=== PATIENT | female | born 1975 | race Hispanic/Latino ===

== ENCOUNTER 2018-09-16 11:42 | Inpatient (IN) | payer MEDICAID, SELFPAY ==
[2018-09-16 12:29] LABS: #Basophils 0.1 thou/uL (0.0-0.2); #Eosinphils 0.2 thou/uL (0.0-0.7); #Lymphocytes 2.8 thou/uL (1.20-3.40); #Monocytes 0.6 thou/uL (0.11-0.59); #Neutrophils 8.8 thou/uL (1.40-6.50); %Basophils 0.5 % (0.0-1.0); %Eosinophils 1.3 % (0.0-10.0); %Lymphocytes 22.6 % (21.0-51.0); %Monocytes 4.8 % (0.0-10.0); %Neutrophils 70.9 % (42.0-75.0); Hemoglobin 13.6 g/dL (12.0-16.0); Mean Corpuscular HGB CONC 32.2 g/dL (32.0-36.0); Mean Corpuscular Hemoglobin 25.1 pg (27.0-31.0); Mean Platelet Volume 9.6 fL (7.4-10.4); Platelet Count 360 thou/uL (130-400); RBC Distribution Width 15.2 % (11.5-14.5); Red Blood Cell (RBC) Count 5.41 mill/uL (4.20-5.40); White Blood Cell (WBC) Count 12.3 thou/uL (4.8-10.8)
--- NOTE | 2018-09-16 12:40 | RAD ---
AP CHEST: History: Chest pain. Date: 09-16-18 FINDINGS: AP chest demonstrates the lungs to be well aerated. No evidence of active intrathoracic disease seen. No evidence of effusions, pneumonia, or pneumothorax is seen. IMPRESSION: Unremarkable AP chest. POS: [facility]
[2018-09-16 12:50] LABS: ALT (SGPT) 16 U/L (8-55); AST (SGOT) 17 U/L (5-34); Albumin 3.7 g/dL (3.5-5.0); Alkaline Phosphatase 97 U/L (40-150); Anion Gap 13 mmol/L (10-20); BUN (Urea Nitrogen) 11 mg/dL (7.0-18.7); Bilirubin, Total 0.7 mg/dL (0.2-1.2); Calc. Creatinine Clearance 0 mL/min (70-130); Calcium 8.9 mg/dL (7.8-10.44); Carbon Dioxide 18 mmol/L (22-29); Chloride 108 mmol/L (98-107); Estimated GFR-MDRD Greater than 90; Globulin 3.9 g/dL (2.4-3.5); Glucose 370 mg/dL (70-105); Potassium 4.2 mmol/L (3.5-5.1); Protein, Total 7.6 g/dL (6.0-8.3); Sodium 135 mmol/L (136-145)
[2018-09-16] MEDS ORDERED: Fentanyl 100 MCG/2 ML VIAL ONE (12:54)
[2018-09-16 13:12] LABS: CKMB 3.3 ng/mL (0-6.6)
[2018-09-16] MEDS ORDERED: Aspirin Chewable 81 MG TAB ONE (14:00)
[2018-09-16 15:58] LABS: Troponin I 0.721 ng/mL (< 0.028)
[2018-09-16] MEDS ORDERED: Ondansetron PF 4 MG/2 ML Vial IVP PRN (17:15)
[2018-09-16] MEDS ORDERED: Ondansetron ODT 4 MG TAB PO PRN (17:15)
[2018-09-16] MEDS ORDERED: Nitroglycerin 0.4 MG TAB (25 Tab Bottle) PO PRN (17:15)
[2018-09-16] MEDS ORDERED: Acetaminophen 325 MG TAB PO PRN (17:15)
[2018-09-16] MEDS ORDERED: Dextrose 50% Abboject 50 ML SYRINGE SLOW IVP PRN (17:19)
[2018-09-16] MEDS ORDERED: HumaLOG 300 UNITS/3 ML VIAL SC PRN (17:19)
[2018-09-16] MEDS ORDERED: Dextrose 5% in Water 1,000 ML IV PRN (17:19)
[2018-09-16] MEDS ORDERED: Sodium Chloride 0.9% (PF) 10 ML VIAL FS PRN (17:48)
[2018-09-16 18:49] LABS: Troponin I 2.063 ng/mL (< 0.028)
[2018-09-16] MEDS ORDERED: Communication Order-Pharmacy FS SCH (20:45)
[2018-09-16] MEDS ORDERED: Atorvastatin Calcium 40 MG TAB PO SCH ×2 (21:00→23:15)
[2018-09-16] MEDS ORDERED: Midazolam HCl 2 mg/2 ml Vial ONE (21:07)
[2018-09-16] MEDS ORDERED: Nitroglycerin 4.9 GM Bottle ONE (21:09)
[2018-09-16] MEDS ORDERED: hydrALAZINE 20 MG/ML VIAL ONE (21:50)
--- NOTE | 2018-09-16 22:53 | HP ---
PRIMARY CARE PHYSICIAN: Dr. Tracy. CHIEF COMPLAINT: Chest pain. HISTORY OF PRESENT ILLNESS: Ms. Floyd Fritz is a pleasant 42-year-old Portuguese-speaking female with past medical history of hypertension; diabetes mellitus type 2; leukemia; coronary artery disease, status post stent placement; hyperlipidemia, who had presented to [facility] with chest pain and hypotension that has been ongoing over the last 2 to 3 weeks. She states that the chest pain is on the left side of her chest that is nonreproducible. However, she also reports that the chest pain is worse if she is up walking, states it is even giving her some [id number] shortness of breath, where she had to stop and sit down and catch her breath during times when she was at home. She has also complained of some abdominal pain, which is in her left upper quadrant. She had denied any history of GERD-like symptoms in the past; however, she does state that the symptoms are worse after meals. She is accompanied by her . She reports having a followup with a operation agent in the next 2 to 3 weeks; however, she has not seen them as of yet. She had denied any fever, chills, any headache, blurred vision, or dizziness. Denies any shortness of breath at the moment. Denies any nausea, vomiting, or change in stool. Denies any intent weight loss or weight gain over the last 6 months. During her initial workup, blood pressure was found to be low at 60/49. She was given IV fluid with normal saline x1 L, which seemed to improve to 138/75. Chest x-ray was found to be unremarkable. She was given aspirin 325 mg and fentanyl 50 mcg IV push in the ER, which seemed to help her chest pain; however, it has returned to 7/10 pain. Serial troponins were ordered. First one was indeterminate at 0.046 and the second was slightly elevated at 0.721. Third is pending at this time. White count slightly elevated at 12.3; however, no other signs of infectious-like process at this time. Cardiology Services was then consulted due to her elevated troponin and she will be admitted under observation for further workup of her chest pain. REVIEW OF SYSTEMS: All other systems reviewed and found to be negative unless mentioned in the HPI. PAST MEDICAL HISTORY: Significant for leukemia, hypertension, hyperlipidemia, diabetes mellitus type 2, coronary artery disease. PAST SURGICAL HISTORY: section about 18 years ago and status post angioplasty with stent placement x1. SOCIAL HISTORY: The patient denies any alcohol, tobacco, or illicit drug use. KNOWN ALLERGIES: None. HOME MEDICATIONS: 1. Metformin 1000 mg b.i.d. 2. Glipizide 10 mg oral daily. 3. Tasigna 150 mg two tablets oral twice daily. PHYSICAL EXAMINATION: VITAL SIGNS: Blood pressure 138/75, pulse 90, respirations 17, temperature 98.9 degrees Fahrenheit, O2 saturations 99% on room air. GENERAL: The patient is awake, alert, and oriented x3. No acute distress noted. Non-Yi speaking. HEENT: Atraumatic, normocephalic. Pupils are round and reactive to light. Extraocular muscles intact. Moist mucous membranes noted. Oropharynx is clear without exudates or erythema. NECK: Soft and supple. No JVD. Trachea midline. CARDIOVASCULAR: Positive S1 and S2. Regular rate and rhythm. No murmur auscultated. ABDOMEN: Soft. Mild tenderness in the left upper quadrant. No rebound. No rigidity. Bowel sounds present. RESPIRATORY: Clear to auscultation bilaterally. No wheezes, rales, or rhonchi. MUSCULOSKELETAL: Strength 5+ bilaterally in upper and lower extremities. Moves all extremities equal. No edema noted. NEUROLOGIC: Cranial nerves 2 through 12 grossly intact. No focal deficits noted. Speech intact and normal. Gait not assessed. SKIN: Warm, dry, and intact. No ulcerations. No lesions noted. PSYCHIATRIC: Good mood and affect. LABORATORY DATA: WBC 12.3, RBC 5.41, hemoglobin 13.6, platelet 360. Sodium 135, potassium 4.2, anion gap 13, BUN 11, creatinine 0.68, estimated GFR greater than 90, glucose 370, AST 17, ALT 16, alkaline phosphatase 97. Troponin 0.046, 0.721; CK-MB 3.3. DIAGNOSTIC IMAGING: Chest x-ray was unremarkable. ASSESSMENT AND PLAN: 1. Chest pain. Cardiology Services will be consulted. Continue with aspirin therapy at this time. Continue to monitor vital signs and add antihypertensives as she is able to tolerate; however, due to her initial hypotension, we will hold off at this time. Serial troponins found to be trending up, with the first 0.046 and second 0.721. We will await the third and await further recommendations from Cardiology. 2. History of hypertension. The patient was hypotensive on arrival to the ER. We will monitor vital signs closely overnight and we will add antihypertensives as needed. 3. Diabetes mellitus type 2. Continue on the patient's home regimen at this time. Continue with frequent Accu-Cheks and place on insulin sliding scale as needed. 4. Leukocytosis. White count noted to be 12.3. No further signs of an infectious-like process at this time. Therefore, we will recheck CBC in the morning and hold off on antibiotics at this time. 5. Left upper quadrant pain. This could likely be secondary to gastroesophageal reflux disease, undiagnosed at this time. Therefore, we will place the patient on PPI and continue to monitor. 6. Deep venous thrombosis and gastrointestinal prophylaxis. 7. Code status. Full code. DISPOSITION: Pending further workup and clinical findings. Job ID: [id number]
[2018-09-16] MEDS ORDERED: traMADol HCl 50 MG TAB PO PRN (22:54)
[2018-09-16] MEDS ORDERED: Nitroglycerin 0.4 MG TAB (25 Tab Bottle) SL PRN (22:54)
[2018-09-16] MEDS ORDERED: Acetaminophen/Codeine 30-300mg Tablet PO PRN ×2 (22:54)
[2018-09-16] MEDS ORDERED: Sodium Chloride 0.9% 1,000 ML IV SCH (22:54)
[2018-09-17] MEDS ORDERED: Heparin 10,000 UNITS/ 10 ML VIAL SLOW IVP SCH (00:15)
[2018-09-17] MEDS ORDERED: Heparin 25,000 units/D5W 500 ML IV SCH (00:15)
--- NOTE | 2018-09-17 00:19 | CON ---
DATE OF CONSULTATION: 09/16/2018 INDICATION FOR CONSULTATION: A 42-year-old female with chest pain. The history was obtained through an employee relation manager. This is a 42-year-old female who was seen in the emergency room. She had been complaining of chest pain on and off since August 26 or . She really thought it was due to chemotherapy that she has been taking for her leukemia, uncertain as what kind of leukemia she has, but she was taking chemotherapy, takes 2 tablets a day apparently. The pain has been present on and off and pretty much now constant since August 26 or . She is unsure exactly when it started, but today she had more pain, and she had 1 episode of vomiting. EKGs did show evidence of some ST-segment changes with some T-wave abnormalities in the inferior as well as lateral leads. She complains of chest pain still of 7/10. Cardiac enzymes on admission to the emergency room were 0.046, has increased up to 0.72, and is now 2.063, and she still continued to have some chest discomfort and EKG changes. I have discussed with her the possibility of proceeding with cardiac catheterization. PAST MEDICAL HISTORY: Significant for diabetes, leukemia, and . She denies any history of hypertension, hypercholesterolemia, or tobacco abuse, or strong family history of heart disease. However, she does have some xanthelasma on the upper eyelids, most likely associated with possible hypercholesterolemia. SOCIAL HISTORY: She has a partner. She is not at this time. Apparently, she has 1 child. She has no alcohol or tobacco abuse. She does not work. FAMILY HISTORY: Noncontributory. MEDICATIONS: She says she takes medicines for her chemotherapy for leukemia and also takes some medicines for diabetes. She says her doctor is Dr. Craig, who is the oncologist. ALLERGIES: NONE. REVIEW OF SYSTEMS: Her 12-point review of systems is negative except for what I am about to explain and that is she does have some visual changes which she attributes has been told is due to her diabetes. She had 1 episode of vomiting today. She does complain of bone pain also, which most likely is associated with her leukemia and she has been told that this is a likely cause. Otherwise, her 12-point review of systems is unremarkable except for what was noted in the history of present illness. PHYSICAL EXAMINATION: GENERAL: Reveals a middle-aged female. She does not appear to be in acute distress, but she does appear to be uncomfortable. VITAL SIGNS: Her heart rate is about 90 beats per minute, blood pressure was 136/65, O2 saturation is 99%. HEENT: Shows the head to be normocephalic and atraumatic. Carotid pulses are present. There were no bruits noted. CHEST: Her chest is actually clear to auscultation. Did not hear any rales, rhonchi, or wheezing. CARDIOVASCULAR: Reveals a regular rate and rhythm. There were no gross murmurs noted. ABDOMEN: Shows morbid obesity. I cannot palpate any masses or tenderness. EXTREMITIES: Showed no significant clubbing, cyanosis, or edema. Could not palpate radial pulses, pedal pulses and femoral pulses are present, somewhat hard to palpate, but are present. NEUROLOGIC: The patient appears to be fully intact. SKIN: Warm and dry. She did have significant varicose veins in the lower extremities. LABORATORY DATA: EKG as noted above for the sinus rhythm with ST-segment depression in I and aVL with T-wave inversions in V3 through V6. Repeat EKG shows improvement in some of these with ST-segment depression in I and aVL, now resolved with the T waves slightly less significant than previously. However, she still continues to have chest discomfort. IMPRESSION: 1. Non ST-segment elevation myocardial infarction. Since she continues to have chest discomfort and enzymes continue to increase, which she will be advised to undergo cardiac catheterization. I have explained the procedure, the risks to her to include bleeding, infection, possible myocardial infarction, CVA, renal insufficiency, allergic contrast reaction, and even the possibility of . 2. History of diabetes. This will be dealt with by the primary care service. Her blood sugar is 370. 3. History of some form of leukemia, for which she sees her oncologist. Further recommendations will depend on the results of the cardiac catheterization after this has been completed. Job ID: [id number]
[2018-09-17] MEDS ORDERED: Sodium Chloride 0.9% 1,000 ML IV SCH (00:30)
[2018-09-17] MEDS ORDERED: Sodium Chloride 0.45% 1,000 ML IV SCH (00:30)
[2018-09-17] MEDS: Pantoprazole 40 MG VIAL IVP SCH ×3 (00:41→20:15)
[2018-09-17] MEDS: Nitroglycerin 2% Ointment 1 INCH/1 GM Packet TOP SCH ×4 (00:49→16:32)
[2018-09-17 04:20] LABS: #Basophils 0.1 thou/uL (0.0-0.2); #Eosinphils 0.1 thou/uL (0.0-0.7); #Lymphocytes 3.9 thou/uL (1.20-3.40); #Monocytes 0.7 thou/uL (0.11-0.59); %Basophils 0.9 % (0.0-1.0); %Eosinophils 1.1 % (0.0-10.0); %Lymphocytes 33.1 % (21.0-51.0); %Monocytes 5.8 % (0.0-10.0); %Neutrophils 59.1 % (42.0-75.0); Hemoglobin 11.4 g/dL (12.0-16.0); Mean Corpuscular HGB CONC 31.5 g/dL (32.0-36.0); Mean Corpuscular Hemoglobin 25.8 pg (27.0-31.0); Mean Corpuscular Volume 81.9 fL (78.0-98.0); Mean Platelet Volume 9.4 fL (7.4-10.4); Platelet Count 294 thou/uL (130-400); RBC Distribution Width 15.4 % (11.5-14.5); Red Blood Cell (RBC) Count 4.43 mill/uL (4.20-5.40); White Blood Cell (WBC) Count 11.8 thou/uL (4.8-10.8)
[2018-09-17 04:42] LABS: Anion Gap 13 mmol/L (10-20); BUN (Urea Nitrogen) 8 mg/dL (7.0-18.7); Calc. Creatinine Clearance 264 mL/min (70-130); Calcium 7.5 mg/dL (7.8-10.44); Carbon Dioxide 15 mmol/L (22-29); Cardiac Risk 5.8 (Less than 4.5); Chloride 112 mmol/L (98-107); Cholesterol 260 mg/dl (< 200 Desired); Estimated GFR-MDRD Greater than 90; Glucose 224 mg/dL (70-105); HDL Cholesterol 45 mg/dL (>60 Neg Risk); LDL Cholesterol, Calculated 180 mg/dL; Potassium 3.6 mmol/L (3.5-5.1); Sodium 136 mmol/L (136-145); Triglycerides 177 mg/dL (Less than 150)
[2018-09-17] MEDS: HumaLOG 300 UNITS/3 ML VIAL SC PRN ×3 (06:39→21:22)
[2018-09-17] MEDS ORDERED: Sodium Chloride 0.9% 500 ML IV SCH (07:15)
[2018-09-17] MEDS ORDERED: DOPamine 400 MG/D5W 250 ML 250 ML IVPB SCH (07:45)
--- NOTE | 2018-09-17 08:47 | PDOC.CTH ---
Cardiology Progress Note - Subjective The pt seen and examined. No overnight events. No cardiac complaints. She complains of nausea, mild dizziness, and CP with 4/10 on pain scale. - Objective Vital Signs Temp Pulse Ox 09/17/18 08:00 97.9 F 09/17/18 04:00 97.9 F 09/16/18 22:00 97 Weight 253 lb 8.505 oz 09/16/18 09/17/18 09/18/18 06:59 06:59 06:59 Intake Total 5255.3 500 Output Total 1815 200 Balance 3440.3 300 - Physical Examination General/Neuro: alert & oriented x3 Neck: no JVD present Lungs: CTA Heart: RRR Abdomen: soft Extremities: other: (No edema; Lt fem with no hematoma) - Telemetry Telemetry Rhythm: SR with ST changes - Labs Result Diagrams: 09/17/18 09:28 09/17/18 03:25 Troponin/CKMB CK-MB (CK-2) 3.3 ng/mL (0-6.6) 09/16/18 12:13 Troponin I 1.700 ng/mL (< 0.028) H* 09/17/18 03:25 - Assessment/Plan 1. S/p LHC on 09/16/2018 with 3V CAD - Plan for CABG; holding any BP med for now 2/2 hypotensive; resume Heparin drip without bolus. 2. Hypotension - NS 100ml/h with Dopamin drip to keep SBP > 90 3. DM type 2 - managed by PCP 4. Hyperlipidemia - will start statin 5. Tin AYALA reviewed Pt. seen and eval. by me. She denies chest pain. Chest clear. RRR. I agree with the A/P by the TELECOMMUNICATOR. CT surgery to see today for CABG discussion. Review of Systems - Review of Systems EENTM: reports: no symptoms reported Respiratory: reports: no symptoms reported Cardiac (ROS): reports: see HPI ABD/GI: reports: no symptoms reported : reports: no symptoms reported
[2018-09-17] MEDS ORDERED: Heparin 25,000 units/D5W 500 ML IVPB SCH (08:49)
[2018-09-17] MEDS ORDERED: FLU VACC QS 2018 (6-35MOS)/PF 0.25 ML SYRINGE IM ONE (09:00)
[2018-09-17] MEDS ORDERED: Prevnar 13-Val Conj/PF 0.5 ML SYRINGE IM ONE (09:00)
[2018-09-17] MEDS ORDERED: Enoxaparin Sodium 40 MG/0.4 ML SYRINGE SC SCH (09:00)
--- NOTE | 2018-09-17 09:31 | CON ---
DATE OF CONSULTATION: HISTORY OF PRESENT ILLNESS: A 42-year-old morbidly obese female, who presented to the ER with chest pain of week's duration and radiation to the right arm. She was taken to the cardiac cath and was found to have significant 3-vessel disease with preserved left ventricle. Cardiology Surgery is being consulted. Pulmonary is consulted for ICU care. The patient this morning is awake, alert, and responsive. She says she is feeling better, there is or boyfriend at the bedside who is giving translation. She has never smoked. No history of alcohol abuse. PAST MEDICAL HISTORY: Leukemia, previous known carotid disease status post stent; history of diabetes, history of hyperlipidemia and history of hypertension. PREVIOUS SURGERIES: Outlined includes previous , previous angioplasty. HOME MEDICATIONS: Includes metformin 500, glipizide 10, and Tasigna 150. ALLERGIES: NONE. SOCIAL HISTORY: Lives at home. REVIEW OF SYSTEMS: Otherwise unremarkable. PHYSICAL EXAMINATION: GENERAL: Awake, alert, and responsive. VITAL SIGNS: Pulse 87, blood pressure 95/40, saturations 100%, and respirations 18. CHEST: Decreased breath sounds. No wheezing. CARDIAC: Normal S1, S2. No gallops. ABDOMEN: No masses. LABORATORY DATA: White count 24683, H and H 11 and 36, platelet count is normal. Lytes are normal. Troponin is elevated at 1.7. Cholesterol is elevated at 260. Chest x-ray shows no acute infiltrates. ASSESSMENT: Acute coronary syndrome status post cardiac cath. Multivessel disease. Diabetes, hypertension, and leukemia. PLAN: Pulmonary Critical Care will follow while in the ICU. Await input from Cardiovascular Surgery. This is a consultation note, 70 minutes, 50% direct patient care. Job ID: [id number]
[2018-09-17 09:36] LABS: Hemoglobin 12.2 g/dL (12.0-16.0); Platelet Count 288 thou/uL (130-400)
[2018-09-17] MEDS: Aspirin 325 mg Enteric Coated Tablet PO SCH (09:54)
[2018-09-17] MEDS: Carvedilol 3.125 MG TAB PO SCH ×2 (09:55→20:17)
[2018-09-17] MEDS: Enoxaparin Sodium 40 MG/0.4 ML SYRINGE SC SCH (09:56)
[2018-09-17] MEDS: Lisinopril 5 MG TAB PO SCH (09:56)
[2018-09-17] MEDS ORDERED: Communication Order-Pharmacy FS SCH (10:09)
[2018-09-17] MEDS: Sodium Chloride 0.9% 1,000 ML IV SCH ×2 (10:42→13:46)
[2018-09-17 10:50] LABS: Hemoglobin A1c 10.6 % (4.0-6.0)
--- NOTE | 2018-09-17 11:21 | PDOC.PN ---
- Subjective Encounter Start Date: 09/17/18 Encounter Start Time: 10:20 -: old records requested/rev Patient seen and examined. No new complaints. No overnight events pt does not have chest pain, her BP low but asymptomatic - Objective Resuscitation Status - Order Detail: 09/16/18 17:15 Resuscitation Status Routine Co-Sign Provider: Resuscitation Status: FULL: Full Resuscitation MAR Reviewed: Yes Vital Signs & Weight: Vital Signs (12 hours) Temp Pulse Ox 09/17/18 08:00 97.9 F 100 09/17/18 04:00 97.9 F Weight Weight 253 lb 8.505 oz Most Recent Monitor Data Heart Rate from ECG 82 NIBP 106/71 NIBP BP-Mean 82 Respiration from ECG 11 SpO2 100 I&O: 09/16/18 09/17/18 09/18/18 06:59 06:59 06:59 Intake Total 5255.3 500 Output Total 1815 525 Balance 3440.3 -25 Result Diagrams: 09/17/18 09:28 09/17/18 03:25 Additional Labs: Accuchecks 09/17/18 01:35 POC Glucose 201 H EKG Reviewed by me: Yes Phys Exam - Physical Examination Constitutional: NAD HEENT: PERRLA, moist MMs, sclera anicteric Neck: no JVD, supple Respiratory: no wheezing, no rales, no rhonchi Cardiovascular: RRR, no significant murmur, no rub Gastrointestinal: soft, non-tender, no distention, positive bowel sounds obesity+ Musculoskeletal: no edema, pulses present Neurological: non-focal, normal sensation, moves all 4 limbs Lymphatic: no nodes Psychiatric: normal affect, A&O x 3 Skin: no rash, normal turgor Dx/Plan (1) NSTEMI (non-ST elevated myocardial infarction) Code(s): I21.4 - NON-ST ELEVATION (NSTEMI) MYOCARDIAL INFARCTION Status: Acute (2) Diabetes type 2, controlled Code(s): E11.9 - TYPE 2 DIABETES MELLITUS WITHOUT COMPLICATIONS Status: Chronic (3) Dyslipidemia Code(s): E78.5 - HYPERLIPIDEMIA, UNSPECIFIED Status: Chronic (4) H/O leukemia Code(s): Z85.6 - PERSONAL HISTORY OF LEUKEMIA Status: Chronic (5) Morbid obesity with BMI of 40.0-44.9, adult Code(s): E66.01 - MORBID (SEVERE) OBESITY DUE TO EXCESS CALORIES; Z68.41 - BODY MASS INDEX (BMI) 40.0-44.9, ADULT Status: Chronic (6) 3-vessel CAD Status: Acute - Plan cont current plan of care, plan discussed w/ family * echo done and result pending * CV surgery consulted for cabg * medication reviewed as below * symptomatic treatment * cardiology following * change to moderate scale insulin. * continue current optimum medical therapy for nstemi Review of Systems - Review of Systems ENT: negative: Ear Pain, Ear Discharge, Nose Pain, Nose Discharge, Nose Congestion, Mouth Pain, Mouth Swelling, Throat Pain, Throat Swelling, Other Respiratory: negative: Cough, Dry, Shortness of Breath, Hemoptysis, SOB with Excertion, Pleuritic Pain, Sputum, Wheezing Cardiovascular: negative: chest pain, palpitations, orthopnea, paroxysmal nocturnal dyspnea, edema, light headedness, other Gastrointestinal: negative: Nausea, Vomiting, Abdominal Pain, Diarrhea, Constipation, Melena, Hematochezia, Other Genitourinary: negative: Dysuria, Frequency, Incontinence, Hematuria, Retention , Other Musculoskeletal: negative: Neck Pain, Shoulder Pain, Arm Pain, Back Pain, Hand Pain, Leg Pain, Foot Pain, Other Skin: negative: Rash, Lesions, Alexei, Bruising, Other - Medications/Allergies Allergies/Adverse Reactions: Allergies Allergy/AdvReac Type Severity Reaction Status Date / Time No Known Drug Allergies Allergy Unverified 09/16/18 17:43 Medications: Current Medications Acetaminophen (Tylenol) 650 mg PO Q4H PRN PRN Reason: Headache/Fever/Mild Pain (1-3) Acetaminophen/Codeine Phosphate (Tylenol #3) 1 tab PO Q4H PRN PRN Reason: Mild Pain (1-3) Acetaminophen/Codeine Phosphate (Tylenol #3) 2 tab PO Q4H PRN PRN Reason: Moderate Pain (4-6) Aspirin (Ecotrin) 325 mg PO DAILY ON LICENSE OF [facility] Last Admin: 09/17/18 09:54 Dose: 325 mg Atorvastatin Calcium (Lipitor) 40 mg PO HS ON LICENSE OF [facility] Carvedilol (Coreg) 3.125 mg PO BID ON LICENSE OF [facility] Last Admin: 09/17/18 09:55 Dose: Not Given Dextrose/Water (Dextrose 50%) 25 gm SLOW IVP PRN PRN PRN Reason: Hypoglycemia Enoxaparin Sodium (Lovenox) 40 mg SC 0900 ON LICENSE OF [facility] Last Admin: 09/17/18 09:56 Dose: Not Given Glucagon (Glucagon) 1 mg IM PRN PRN PRN Reason: Hypoglycemia Dextrose/Water (D5w) 1,000 mls @ 0 mls/hr IV .Q0M PRN PRN Reason: Hypoglycemia Dopamine HCl/Dextrose (Dopamine/D5w) 250 mls @ 0 mls/hr IVPB INF [facility]; Protocol Heparin Sodium/Dextrose (Heparin 25,000 Units/D5w 500 Ml) 500 mls @ 0 mls/hr IVPB INF [place]; Protocol Sodium Chloride (Normal Saline 0.9%) 1,000 mls @ 100 mls/hr IV .Q10H ON LICENSE OF [facility] Last Admin: 09/17/18 10:42 Dose: 1,000 mls Insulin Human Lispro (Humalog) 0 units SC .MILD SLIDING SCALE PRN PRN Reason: Mild Correctional Scale Last Admin: 09/17/18 06:39 Dose: 3 units Insulin Human Lispro (Humalog) 0 units SC .BEDTIME SLIDING SC PRN PRN Reason: Bedtime Correctional Scale Lisinopril (Zestril) 5 mg PO DAILY ON LICENSE OF [facility] Last Admin: 09/17/18 09:56 Dose: Not Given Miscellaneous Information (Communication Order-Pharmacy) 1 each FS ASDIR ON LICENSE OF [facility] Nitroglycerin (Nitrostat) 0.4 mg SL Q5MIN PRN PRN Reason: Chest Pain Nitroglycerin (Nitro-Bid 2% Ointment) 0.5 inch TOP Q6HR ON LICENSE OF [facility] Last Admin: 09/17/18 07:15 Dose: Not Given Ondansetron HCl (Zofran Odt) 4 mg PO Q6H PRN PRN Reason: Nausea/Vomiting Ondansetron HCl (Zofran) 4 mg IVP Q6H PRN PRN Reason: Nausea/Vomiting Last Admin: 09/17/18 08:36 Dose: 4 mg Pantoprazole Sodium (Protonix) 40 mg IVP Q12HR ON LICENSE OF [facility] Last Admin: 09/17/18 08:40 Dose: 40 mg Sodium Chloride (Normal Saline Pf) 10 ml FS PRN PRN PRN Reason: RECONSTITUTION Last Admin: 09/17/18 08:40 Dose: 10 ml Sodium Chloride (Normal Saline 0.9% 250 Ml Bag) 200 ml IVPB ONE PRN PRN Reason: BOLUS IF SBP <90 Stop: 09/19/18 22:55 Tramadol HCl (Ultram) 50 mg PO Q6H PRN PRN Reason: Pain
--- NOTE | 2018-09-17 12:18 | CON ---
DATE OF CONSULTATION: HISTORY OF PRESENT ILLNESS: This is a 42-year-old female with diabetes mellitus, who has previously lived in the [place] area, moving here with her significant other this past fall. 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 She denies any history of hypertension. Does admit to diabetes mellitus that is poorly controlled while she is taking chemotherapeutic agents. She has had chest discomfort on the left side of her chest for the past 2 weeks. She had a slight troponin bump with some EKG changes consistent with ischemia, undergoing cardiac catheterization showing severe LAD diagonal disease with the diagonal probably being non-bypassable. Circumflex consisted of an OM with a significant diffuse disease and a distal circ, which does not exit the AV groove. Right coronary artery appears nondominant. Cardiac echo reportedly with an ejection fraction of 60% to 65%. SOCIAL HISTORY: The patient is a nonsmoker. She has one child, 18 years old, whom she is estranged from. PAST SURGICAL HISTORY: . MEDICATIONS: At home, include metformin 1000 [address].i.d. and glipizide [address] Tracy. She also takes her Tasigna 150 mg daily, I believe. PHYSICAL EXAMINATION: GENERAL: On examination, she is alert and cooperative lady, no distress. VITAL SIGNS: Recorded weight of 253 pounds, recorded height of 5 feet and 6 inches. Blood pressure 90 and heart rate 90, sinus rhythm. NECK: No carotid bruits. LUNGS: Clear to auscultation. ABDOMEN: Obese and nontender. EXTREMITIES: She has no pedal pulses and radial pulses are also difficult to palpate. She has significant panniculus hanging over her groins making femoral pulsations difficult to palpate. She has no peripheral edema. ASSESSMENT AND PLAN: Potential targets include the left anterior descending and obtuse marginal. I do not think the distal circ is large enough to graft and the right coronary artery does not appear to be a dominant system and I am not sure which vessel is the source of the PDA, but it does not visualize on cardiac catheterization. Plan on bypass grafting to the left anterior descending and obtuse marginal in the morning and informed consent has been obtained. Job ID: [id number]
[2018-09-17] MEDS: Heparin 10,000 UNITS/ 10 ML VIAL SLOW IVP SCH ×2 (15:50→21:27)
[2018-09-17] MEDS ORDERED: Atorvastatin Calcium 40 MG TAB PO SCH (21:00)
[2018-09-18] MEDS: Nitroglycerin 2% Ointment 1 INCH/1 GM Packet TOP SCH ×3 (01:19→10:59)
[2018-09-18] MEDS: Sodium Chloride 0.9% 1,000 ML IV SCH ×4 (03:11→21:42)
[2018-09-18 04:26] LABS: #Eosinphils 0.2 thou/uL (0.0-0.7); #Lymphocytes 3.3 thou/uL (1.20-3.40); #Monocytes 0.7 thou/uL (0.11-0.59); #Neutrophils 5.4 thou/uL (1.40-6.50); %Basophils 0.3 % (0.0-1.0); %Eosinophils 2.6 % (0.0-10.0); %Lymphocytes 34.1 % (21.0-51.0); %Monocytes 7.5 % (0.0-10.0); %Neutrophils 55.5 % (42.0-75.0); Hemoglobin 11.1 g/dL (12.0-16.0); Mean Corpuscular HGB CONC 30.5 g/dL (32.0-36.0); Mean Corpuscular Hemoglobin 24.8 pg (27.0-31.0); Mean Corpuscular Volume 81.5 fL (78.0-98.0); Mean Platelet Volume 9.4 fL (7.4-10.4); Platelet Count 268 thou/uL (130-400); RBC Distribution Width 15.3 % (11.5-14.5); Red Blood Cell (RBC) Count 4.46 mill/uL (4.20-5.40); White Blood Cell (WBC) Count 9.7 thou/uL (4.8-10.8)
[2018-09-18 04:41] LABS: Anion Gap 9 mmol/L (10-20); BUN (Urea Nitrogen) 8 mg/dL (7.0-18.7); Calc. Creatinine Clearance 200 mL/min (70-130); Calcium 7.6 mg/dL (7.8-10.44); Carbon Dioxide 21 mmol/L (22-29); Chloride 110 mmol/L (98-107); Estimated GFR-MDRD Greater than 90; Glucose 231 mg/dL (70-105); Potassium 3.7 mmol/L (3.5-5.1); Sodium 136 mmol/L (136-145)
[2018-09-18 05:51] VITALS: BMI 41.8
[2018-09-18] MEDS: Carvedilol 3.125 MG TAB PO SCH (05:59)
[2018-09-18] MEDS ORDERED: Albumin 5% 500 ML ONE (06:43)
[2018-09-18] MEDS ORDERED: Bupivacaine HCl 0.5%/Epinephrine 1:200,000/PF 30 ml Vial ONE (06:46)
[2018-09-18] MEDS ORDERED: Dexamethasone 4 mg/ml Vial ONE (06:46)
[2018-09-18] MEDS ORDERED: Midazolam HCl 5 mg/5 ml Vial ONE (07:03)
[2018-09-18] MEDS ORDERED: Fentanyl 250 MCG/5 ML VIAL ONE ×2 (07:03)
[2018-09-18] MEDS ORDERED: Heparin 10,000 UNITS/1 ML VIAL 30,000 UNITS in Sodium Chloride 0.9% 1,000 ML FS SCH (07:15)
[2018-09-18] MEDS: Aspirin 325 mg Enteric Coated Tablet PO SCH (07:43)
[2018-09-18] MEDS: Enoxaparin Sodium 40 MG/0.4 ML SYRINGE SC SCH (07:43)
[2018-09-18] MEDS: Pantoprazole 40 MG VIAL IVP SCH (07:44)
[2018-09-18] MEDS: Lisinopril 5 MG TAB PO SCH (07:44)
[2018-09-18] MEDS ORDERED: Insulin Regular 300 UNITS/3 ML VIAL ONE (08:11)
[2018-09-18] MEDS ORDERED: Rocuronium Bromide 50 MG/5 ML VIAL ONE (08:55)
[2018-09-18] MEDS ORDERED: Potassium Chloride 60 MEQ/30 ML VIAL ONE (10:08)
[2018-09-18] MEDS ORDERED: Rocuronium Bromide 10 MG/ML (10ML VIAL) ONE (10:08)
[2018-09-18] MEDS ORDERED: Heparin 5,000 UNITS/ML VIAL ONE (10:08)
[2018-09-18] MEDS ORDERED: Magnesium 5 GM/10 ML VIAL ONE (10:08)
[2018-09-18] MEDS ORDERED: Mannitol 12.5 GM/50 ML ONE (10:08)
[2018-09-18] MEDS ORDERED: Lidocaine 2% PF 100 mg/5 ml Syringe ONE (10:08)
[2018-09-18] MEDS ORDERED: Thrombin 5000 UNITS/5 ML VIAL ONE (10:08)
[2018-09-18] MEDS ORDERED: Papaverine 60 MG/2 ML VIAL ONE (10:08)
[2018-09-18] MEDS ORDERED: Calcium Chloride 1 GM/10 ML Abboject SYRINGE ONE (10:08)
[2018-09-18] MEDS ORDERED: Cardioplegic Soln 1,000 ML BAG ONE (10:08)
[2018-09-18] MEDS ORDERED: Sodium Bicarb 50 MEQ/50 ML VIAL ONE (10:08)
[2018-09-18] MEDS ORDERED: PHENYLEPHRINE-NS 100 MCG/ML 10 ML SYRINGE ONE (10:08)
[2018-09-18] MEDS ORDERED: Vecuronium 10 MG VIAL ONE (10:08)
[2018-09-18] MEDS ORDERED: Aminocaproic Acid 5 GM/20 ML VIAL ONE (10:08)
[2018-09-18] MEDS ORDERED: Ondansetron PF 4 MG/2 ML Vial ONE (10:08)
[2018-09-18] MEDS ORDERED: Dexamethasone 20 MG/5 ML VIAL ONE (10:08)
[2018-09-18] MEDS ORDERED: Heparin 30,000 units/30 ml VIAL ONE (10:08)
[2018-09-18] MEDS ORDERED: PROPOFOL 200 MG/20 ML VIAL ONE (10:08)
[2018-09-18] MEDS ORDERED: Protamine Sulfate 250 MG/25 ML VIAL ONE (10:08)
--- NOTE | 2018-09-18 10:20 | PDOC.PN ---
- Subjective Encounter Start Date: 09/18/18 Encounter Start Time: 06:00 Patient seen and examined. No new complaints. No overnight events - Objective Resuscitation Status - Order Detail: 09/16/18 17:15 Resuscitation Status Routine Co-Sign Provider: Resuscitation Status: FULL: Full Resuscitation MAR Reviewed: Yes Vital Signs & Weight: Vital Signs (12 hours) Temp Pulse Ox 09/18/18 08:00 96 09/18/18 06:00 98.3 F 09/18/18 03:00 99 F 09/18/18 01:00 98.6 F 09/17/18 23:04 98 Weight Weight 260 lb 5.855 oz Most Recent Monitor Data Heart Rate from ECG 89 NIBP 109/77 NIBP BP-Mean 87 Respiration from ECG 16 SpO2 96 I&O: 09/17/18 09/18/18 09/19/18 06:59 06:59 06:59 Intake Total 5255.3 4605 Output Total 1815 4625 250 Balance 3440.3 -20 -250 Result Diagrams: 09/18/18 04:10 09/18/18 04:10 Additional Labs: Accuchecks 09/18/18 09/17/18 09/17/18 08:09 20:28 16:14 POC Glucose 219 H 243 H 225 H 09/17/18 11:44 POC Glucose 169 H EKG Reviewed by me: Yes Phys Exam - Physical Examination Constitutional: NAD HEENT: PERRLA, moist MMs, sclera anicteric Neck: no JVD, supple Respiratory: no wheezing, no rales, no rhonchi Cardiovascular: RRR, no significant murmur, no rub Gastrointestinal: soft, non-tender, no distention, positive bowel sounds Musculoskeletal: no edema, pulses present Neurological: non-focal, normal sensation Lymphatic: no nodes Psychiatric: normal affect Skin: no rash, normal turgor Dx/Plan (1) NSTEMI (non-ST elevated myocardial infarction) Code(s): I21.4 - NON-ST ELEVATION (NSTEMI) MYOCARDIAL INFARCTION Status: Acute (2) Diabetes type 2, controlled Code(s): E11.9 - TYPE 2 DIABETES MELLITUS WITHOUT COMPLICATIONS Status: Chronic (3) Dyslipidemia Code(s): E78.5 - HYPERLIPIDEMIA, UNSPECIFIED Status: Chronic (4) H/O leukemia Code(s): Z85.6 - PERSONAL HISTORY OF LEUKEMIA Status: Chronic (5) Morbid obesity with BMI of 40.0-44.9, adult Code(s): E66.01 - MORBID (SEVERE) OBESITY DUE TO EXCESS CALORIES; Z68.41 - BODY MASS INDEX (BMI) 40.0-44.9, ADULT Status: Chronic (6) 3-vessel CAD Status: Acute - Plan cont current plan of care * today plan for CABG * after cabg continue care as per CV surgery * medication reviewed as below * symptomatic treatment. Review of Systems - Review of Systems ENT: negative: Ear Pain, Ear Discharge, Nose Pain, Nose Discharge, Nose Congestion, Mouth Pain, Mouth Swelling, Throat Pain, Throat Swelling, Other Respiratory: negative: Cough, Dry, Shortness of Breath, Hemoptysis, SOB with Excertion, Pleuritic Pain, Sputum, Wheezing Cardiovascular: negative: chest pain, palpitations, orthopnea, paroxysmal nocturnal dyspnea, edema, light headedness, other Gastrointestinal: negative: Nausea, Vomiting, Abdominal Pain, Diarrhea, Constipation, Melena, Hematochezia, Other Genitourinary: negative: Dysuria, Frequency, Incontinence, Hematuria, Retention , Other Musculoskeletal: negative: Neck Pain, Shoulder Pain, Arm Pain, Back Pain, Hand Pain, Leg Pain, Foot Pain, Other - Medications/Allergies Allergies/Adverse Reactions: Allergies Allergy/AdvReac Type Severity Reaction Status Date / Time No Known Drug Allergies Allergy Verified 09/17/18 22:48 Medications: Current Medications Acetaminophen (Tylenol) 650 mg PO Q4H PRN PRN Reason: Headache/Fever/Mild Pain (1-3) Acetaminophen/Codeine Phosphate (Tylenol #3) 1 tab PO Q4H PRN PRN Reason: Mild Pain (1-3) Acetaminophen/Codeine Phosphate (Tylenol #3) 2 tab PO Q4H PRN PRN Reason: Moderate Pain (4-6) Aspirin (Ecotrin) 325 mg PO DAILY [facility] Last Admin: 09/18/18 07:43 Dose: Not Given Atorvastatin Calcium (Lipitor) 40 mg PO HS [facility] Last Admin: 09/17/18 20:15 Dose: 40 mg Carvedilol (Coreg) 3.125 mg PO BID [facility] Last Admin: 09/18/18 05:59 Dose: 3.125 mg Dextrose/Water (Dextrose 50%) 25 gm SLOW IVP PRN PRN PRN Reason: Hypoglycemia Enoxaparin Sodium (Lovenox) 40 mg SC 0900 [facility] Last Admin: 09/18/18 07:43 Dose: Not Given Glucagon (Glucagon) 1 mg IM PRN PRN PRN Reason: Hypoglycemia Heparin Sodium (Porcine) (Heparin 1,000 Units/Ml (10 Ml)) 0 units SLOW IVP WILLCALL [facility] Last Admin: 09/17/18 21:27 Dose: 3,558 unit Dextrose/Water (D5w) 1,000 mls @ 0 mls/hr IV .Q0M PRN PRN Reason: Hypoglycemia Dopamine HCl/Dextrose (Dopamine/D5w) 250 mls @ 0 mls/hr IVPB INF [facility]; Protocol Last Admin: 09/17/18 12:10 Dose: 250 mls Heparin Sodium/Dextrose (Heparin 25,000 Units/D5w 500 Ml) 500 mls @ 0 mls/hr IVPB INF [facility]; Protocol Last Admin: 09/17/18 20:17 Dose: 500 mls Sodium Chloride (Normal Saline 0.9%) 1,000 mls @ 100 mls/hr IV .Q10H [facility] Last Admin: 09/18/18 03:11 Dose: 1,000 mls Heparin Sodium (Porcine) 30, (000 units/ Sodium Chloride) 1,003 mls @ 0 mls/hr FS WILLCALL [facility] Stop: 09/18/18 12:00 Insulin Human Lispro (Humalog) 0 units SC .MILD SLIDING SCALE PRN PRN Reason: Mild Correctional Scale Last Admin: 09/17/18 21:22 Dose: 3 units Insulin Human Lispro (Humalog) 0 units SC .BEDTIME SLIDING SC PRN PRN Reason: Bedtime Correctional Scale Lisinopril (Zestril) 5 mg PO DAILY [facility] Last Admin: 09/18/18 07:44 Dose: Not Given Miscellaneous Information (Communication Order-Pharmacy) 1 each FS ASDIR [facility] Nitroglycerin (Nitrostat) 0.4 mg SL Q5MIN PRN PRN Reason: Chest Pain Nitroglycerin (Nitro-Bid 2% Ointment) 0.5 inch TOP Q6HR [facility] Last Admin: 09/18/18 06:32 Dose: Not Given Ondansetron HCl (Zofran Odt) 4 mg PO Q6H PRN PRN Reason: Nausea/Vomiting Ondansetron HCl (Zofran) 4 mg IVP Q6H PRN PRN Reason: Nausea/Vomiting Last Admin: 09/17/18 08:36 Dose: 4 mg Pantoprazole Sodium (Protonix) 40 mg IVP Q12HR [facility] Last Admin: 09/18/18 07:44 Dose: Not Given Sodium Chloride (Normal Saline Pf) 10 ml FS PRN PRN PRN Reason: RECONSTITUTION Last Admin: 09/17/18 08:40 Dose: 10 ml Sodium Chloride (Normal Saline 0.9% 250 Ml Bag) 200 ml IVPB ONE PRN PRN Reason: BOLUS IF SBP <90 Stop: 09/19/18 22:55 Tramadol HCl (Ultram) 50 mg PO Q6H PRN PRN Reason: Pain
[2018-09-18] MEDS ORDERED: Morphine 2 MG/ML SYRINGE SLOW IVP PRN (11:28)
[2018-09-18] MEDS ORDERED: niCARdipine HCl 25 MG in Sodium Chloride 0.9% 250 ML 240 ML IVPB PRN (11:28)
[2018-09-18] MEDS ORDERED: Acetaminophen 325 MG TAB PO PRN (11:28)
[2018-09-18] MEDS ORDERED: Post-Op Insulin Drip Protocol IVPB ONE (11:28)
[2018-09-18] MEDS ORDERED: DOPamine 400 MG/D5W 250 ML 250 ML IVPB PRN (11:28)
[2018-09-18] MEDS ORDERED: Norepinephrine 8 MG/0.9% NS 250 ML IVPB PRN (11:28)
[2018-09-18] MEDS ORDERED: Ondansetron PF 4 MG/2 ML Vial IVP PRN (11:28)
[2018-09-18] MEDS ORDERED: Bisacodyl 5 MG TAB PO PRN (11:28)
[2018-09-18] MEDS ORDERED: Nitroglycerin 50 MG/250 ML BOT 250 ML IVPB PRN (11:28)
[2018-09-18] MEDS ORDERED: Promethazine HCl 25 MG/ML VIAL IM PRN (11:28)
[2018-09-18] MEDS ORDERED: hydrALAZINE 20 MG/ML VIAL SLOW IVP PRN (11:28)
[2018-09-18] MEDS ORDERED: Hetastarch 6% 500 ML 500 ML IVPB PRN (11:28)
[2018-09-18] MEDS ORDERED: Guaifenesin DM 100-10/5 ML UDCUP PO PRN (11:28)
[2018-09-18] MEDS ORDERED: Fentanyl 100 MCG/2 ML VIAL SLOW IVP PRN ×2 (11:28)
[2018-09-18] MEDS ORDERED: Bisacodyl 10 MG SUPP PR PRN (11:28)
[2018-09-18] MEDS ORDERED: Mag-Al 1200 mg/1200 mg/30 ML UDCUP PO PRN (11:28)
[2018-09-18] MEDS ORDERED: Dextrose 5% in Water 1,000 ML IV PRN (11:40)
[2018-09-18] MEDS ORDERED: HUMULIN R 100 UNITS in Sodium Chloride 0.9% 100 ML IVPB SCH (11:40)
[2018-09-18] MEDS ORDERED: Dextrose 50% Abboject 50 ML SYRINGE SLOW IVP PRN (11:40)
[2018-09-18 11:52] LABS: Actual Bicarbonate (HCO3a) 19.9 mEq/L (22-28); Base Excess (BEa) -6.2 mEq/L (-2.0 to +3.0); CO2 Tension 41.5 mmHg (35.0-45.0); Calcium, Ionized 1.06 mmol/L (1.12-1.30); Carboxyhemoglobin (COHb) 0.7 gm% (0.0-3.0); Hemoglobin (Hb) 10.5 g/dL (12.0-16.0); O2 Tension (PaO2) 135.4 mmHg (80.0-100.0); Potassium - ABG Lab 3.68 mmol/L (3.70-5.30)
[2018-09-18 11:53] LABS: ALV-art Gradient 311.825 (0-20); Puncture Site ALINE
[2018-09-18] MEDS ORDERED: Magnesium 2 GM/50 ML 2 GM in Premix Bag 1 BAG IVPB SCH (12:00)
[2018-09-18 12:02] LABS: INR-International Normal Ratio 1.1; PTT 26.2 SEC (22.9-36.1); Prothrombin Time 14.6 SEC (12.0-14.7)
--- NOTE | 2018-09-18 12:02 | OP ---
DATE OF PROCEDURE: 09/18/2018 PREOPERATIVE DIAGNOSIS: Coronary artery disease, status post non-STEMI. PROCEDURE PERFORMED: Coronary artery bypass graft x3, left internal mammary artery to a 1.5 mm LAD, saphenous vein good quality large to a 1.5 mm OM, and a 1.25 mm right acute marginal. PROFESSOR OF BUSINESS: Ramirez Kaur MD. TRANSFUSION: None. DESCRIPTION OF PROCEDURE: After adequate anesthesia had been obtained, I placed a left femoral arterial line due to absence of radial pulses. After ultrasound mapping of the left greater saphenous vein at the level of the knee, the patient was prepped and draped. Dr. Kaur performed an endovascular vein harvest of the left greater saphenous vein, while I performed a median sternotomy. The left internal mammary artery was harvested, entering the left pleura superiorly. The mammary was divided distally and passed through a small remnant of tissue to allow direct access to the LAD, which actually lay close to the midline of the chest. The aorta was cannulated above the pericardial reflection and the patient had a very short aorta. The right atrium was cannulated through the atrial appendage and cardiopulmonary bypass was begun after adequate ACT levels from heparinization. The vessels were inspected for grafting and there was no PDA system suitable for grafting. The patient had very little fat on her heart. The aorta was cross clamped and after a liter of cold cardioplegic solution, the three distal anastomosis were all completed. A 1-mm probe was passed distally on the LAD prior to completing the suture line. Following this, the cross-clamp was removed and the partial occluding clamp placed in the OM graft anastomosed to the aortic root into the angel of this. The acute marginal graft was placed. The patient was then weaned from cardiopulmonary bypass. Cannula was removed and the aortic cannulation site secured. Mediastinal and left pleural drains were placed and after obtaining good hemostasis, vancomycin paste was used on the sternal edges, platelet rich blood and platelet poor plasma in the subcutaneous tissue and skin were closed in layers. Job ID: [id number]
[2018-09-18] MEDS: Ketorolac Tromethamine 30 MG/ML VIAL IVP SCH ×2 (12:03→18:01)
[2018-09-18 12:06] LABS: Hemoglobin 10.3 g/dL (12.0-16.0); Mean Corpuscular Hemoglobin 25.7 pg (27.0-31.0); Mean Corpuscular Volume 80.3 fL (78.0-98.0); Mean Platelet Volume 9.3 fL (7.4-10.4); Platelet Count 262 thou/uL (130-400); RBC Distribution Width 15.4 % (11.5-14.5); Red Blood Cell (RBC) Count 4.02 mill/uL (4.20-5.40); White Blood Cell (WBC) Count 24.3 thou/uL (4.8-10.8)
[2018-09-18 12:23] LABS: Anion Gap 9 mmol/L (10-20); BUN (Urea Nitrogen) 8 mg/dL (7.0-18.7); Calc. Creatinine Clearance 263 mL/min (70-130); Calcium 6.7 mg/dL (7.8-10.44); Carbon Dioxide 19 mmol/L (22-29); Chloride 115 mmol/L (98-107); Estimated GFR-MDRD Greater than 90; Glucose 141 mg/dL (70-105); Potassium 3.8 mmol/L (3.5-5.1); Sodium 139 mmol/L (136-145)
[2018-09-18 12:26] LABS: Band 21 % (5-11); Eosinophils 1 % (0-10); Lymphocytes 10 % (21-51); MDiff Complete? YES; Monocytes 9 % (0-10); Neutrophil 59 % (42-75); Platelet Morphology Comment Appears Adequate; Polychromasia SLIGHT = 2-3 cells (100X) (0-2/hpf)
--- NOTE | 2018-09-18 12:43 | PRG ---
DATE OF SERVICE: 09/18/2018 SUBJECTIVE: Status post CABG. Back on the vent. Endotracheal tube was sitting in the right mainstem bronchus, has been pulled back 3 cm. OBJECTIVE: VITAL SIGNS: Pulse 108, blood pressure 160/80, sats are 99%. CHEST: Bilateral rhonchi. CARDIAC: Sinus tach. ABDOMEN: Soft. NEUROLOGIC: She is moving all four extremities, status post anesthetic. LABORATORY DATA: This morning shows white count 24,000, H and H of 10 and 32, platelet count 262. PO2 is 135, pCO2 of 41, pH of 7.30. Glucose 134. IMPRESSION: Status post coronary artery bypass graft, morbid obesity, probably sleep apnea. Wean as per protocol. Control blood sugar as per ICU insulin protocol. We will follow. Probably needs an outpatient sleep study. One-half hour of critical time. Job ID: [id number]
[2018-09-18] MEDS: Potassium Chloride 20 MEQ/100 ML PREMIX BAG IVPB PRN ×2 (12:48→18:02)
[2018-09-18 13:34] LABS: Actual Bicarbonate (HCO3a) 17.2 mEq/L (22-28); CO2 Tension 27.3 mmHg (35.0-45.0); Calcium, Ionized 1.05 mmol/L (1.12-1.30); Carboxyhemoglobin (COHb) 1.3 gm% (0.0-3.0); Hemoglobin (Hb) 12.3 g/dL (12.0-16.0); O2 Tension (PaO2) 86.2 mmHg (80.0-100.0); pH, Arterial 7.42 (7.35-7.45)
[2018-09-18 13:35] LABS: ALV-art Gradient 93.575 (0-20); Puncture Site ALINE
--- NOTE | 2018-09-18 13:46 | RAD ---
CHEST RADIOGRAPH FRONTAL: 09/18/2018 HISTORY: Status post open heart surgery. COMPARISON: 09/16/2018 FINDINGS: There is an endotracheal tube in place. The distal tip approaches the right mainstem bronchus. A ri ght vascular catheter is noted, with the distal tip overlying the region of the right atrium. Midlin e sternotomy wires and mediastinal clips are present. A postoperative drainage catheter overlies the mediastinum. There is increased density in the left lung base, suggesting left basilar consolidatio n/collapse. IMPRESSION: 1. Postoperative findings as detailed above. 2. Endotracheal tube, distal tip approaching right mainstem bronchus. Recommend retracting the endo tracheal tube. Results called to the covering nurse in the CCU, Tanmay, at 11:58 a.m. on 09/18/2018. CODE CR POS: ROBB
[2018-09-18] MEDS: HYDROcodone/Acetaminophen 5/325 mg Tablet PO PRN ×3 (14:27→21:40)
[2018-09-18] MEDS: CEFAZOLIN 2 GM in Premix Bag 1 BAG IVPB SCH (14:29)
[2018-09-18 17:27] LABS: Hemoglobin 11.9 g/dL (12.0-16.0)
[2018-09-18 17:38] LABS: Potassium 3.7 mmol/L (3.5-5.1)
[2018-09-18] MEDS ORDERED: Clopidogrel Bisulfate 75 MG TAB ONE (19:45)
[2018-09-18] MEDS: Atorvastatin Calcium 10 MG TAB PO SCH (21:38)
[2018-09-18] MEDS: Famotidine/PF 20 mg/2ml Vial SLOW IVP SCH (21:39)
[2018-09-19] MEDS: Ketorolac Tromethamine 30 MG/ML VIAL IVP SCH ×4 (00:23→17:41)
[2018-09-19] MEDS: CEFAZOLIN 2 GM in Premix Bag 1 BAG IVPB SCH ×2 (00:23→09:09)
[2018-09-19] MEDS: HYDROcodone/Acetaminophen 5/325 mg Tablet PO PRN ×4 (01:38→21:45)
[2018-09-19 04:57] LABS: White Blood Cell (WBC) Count 14.2 thou/uL (4.8-10.8)
[2018-09-19 04:58] LABS: Hemoglobin 10.9 g/dL (12.0-16.0); Red Blood Cell (RBC) Count 4.36 mill/uL (4.20-5.40)
[2018-09-19 04:59] LABS: Mean Corpuscular Volume 80.3 fL (78.0-98.0)
[2018-09-19 05:00] LABS: Platelet Count 263 thou/uL (130-400); RBC Distribution Width 15.7 % (11.5-14.5)
[2018-09-19 05:01] LABS: Mean Platelet Volume 9.3 fL (7.4-10.4)
[2018-09-19 05:02] LABS: %Eosinophils 0.4 % (0.0-10.0); %Lymphocytes 14.6 % (21.0-51.0); %Monocytes 8.7 % (0.0-10.0); %Neutrophils 76.1 % (42.0-75.0)
[2018-09-19 05:03] LABS: #Neutrophils 10.8 thou/uL (1.40-6.50); %Basophils 0.2 % (0.0-1.0)
[2018-09-19 05:04] LABS: #Eosinphils 0.1 thou/uL (0.0-0.7); #Lymphocytes 2.1 thou/uL (1.20-3.40); #Monocytes 1.2 thou/uL (0.11-0.59)
[2018-09-19 05:05] LABS: Mean Corpuscular HGB CONC 31.1 g/dL (32.0-36.0)
[2018-09-19 05:18] LABS: Anion Gap 10 mmol/L (10-20); BUN (Urea Nitrogen) 6 mg/dL (7.0-18.7); Calc. Creatinine Clearance 309 mL/min (70-130); Calcium 6.9 mg/dL (7.8-10.44); Carbon Dioxide 19 mmol/L (22-29); Chloride 111 mmol/L (98-107); Estimated GFR-MDRD Greater than 90; Glucose 122 mg/dL (70-105); Potassium 3.8 mmol/L (3.5-5.1); Sodium 136 mmol/L (136-145)
[2018-09-19] MEDS: Potassium Chloride 20 MEQ/100 ML PREMIX BAG IVPB PRN (05:28)
--- NOTE | 2018-09-19 07:26 | RAD ---
CHEST 1 VIEW: INDICATION: Status post open heart surgery. COMPARISON: Prior exam dated 09/18/2018. FINDINGS: The patient has been extubated. A left-sided thoracostomy tube and mediastinal drains persist. Righ t subclavian central venous catheter persists. Mild cardiomegaly is similar-appearing. There is imp rovement in the central edema pattern. There is a small left pleural effusion that appears smaller t griffin on the prior exam. No pneumothorax evident. IMPRESSION: 1. Interval extubation. 2. Decrease in size of the small left pleural effusion. 3. Improvement in the central edema pattern. 4. Stable mild cardiomegaly. 5. Stable mediastinal drain and left-sided thoracostomy tube. Stable right subclavian central veno us catheter. POS: BH
[2018-09-19] MEDS: Famotidine/PF 20 mg/2ml Vial SLOW IVP SCH (09:10)
[2018-09-19] MEDS: Aspirin 325 MG TAB PO SCH (09:10)
--- NOTE | 2018-09-19 09:34 | PRG ---
DATE OF SERVICE: 09/19/2018 SUBJECTIVE: This morning she is awake, alert, and responsive. Forced expiration. No distress. OBJECTIVE: VITAL SIGNS: Sats 98% on 2 L, temp 99, blood pressure 101/69, pulse 79. CHEST: Decreased breath sounds. No wheezing. CARDIAC: Normal S1, S2. No gallop. ABDOMEN: No masses. LABORATORY STUDIES: Lytes are normal. Chest x-ray shows left-sided infiltrate effusion. IMPRESSION: 1. Status post coronary artery bypass grafting. 2. Diabetes. 3. Probably sleep apnea. 4. Morbid obesity. 5. Continue aggressive PT supportive care. 6. We will follow. Job ID: [id number]
--- NOTE | 2018-09-19 10:30 | PDOC.PN ---
- Subjective Encounter Start Date: 09/19/18 Encounter Start Time: 09:50 Patient seen and examined. No new complaints. No overnight events - Objective Resuscitation Status - Order Detail: 09/16/18 17:15 Resuscitation Status Routine Co-Sign Provider: Resuscitation Status: FULL: Full Resuscitation MAR Reviewed: Yes Vital Signs & Weight: Vital Signs (12 hours) Temp Pulse Resp Pulse Ox 09/19/18 08:00 98.3 F 98 09/19/18 07:23 98 09/19/18 07:21 103 H 18 98 09/19/18 04:00 98.8 F 09/19/18 00:24 89 18 98 09/19/18 00:00 98.4 F Weight Weight 253 lb 8.505 oz Most Recent Monitor Data Heart Rate from ECG 100 NIBP 103/68 NIBP BP-Mean 79 Respiration from ECG 20 SpO2 96 I&O: 09/18/18 09/19/18 09/20/18 06:59 06:59 06:59 Intake Total 4605 2464.4 8 Output Total 4625 2570 200 Balance -20 -105.6 -192 Result Diagrams: 09/19/18 03:50 09/19/18 04:52 Additional Labs: Accuchecks 09/19/18 09/19/18 09/19/18 09:45 08:11 06:34 POC Glucose 206 H 158 H 132 H 09/19/18 09/19/18 09/19/18 05:31 04:24 03:25 POC Glucose 128 H 118 H 117 H 09/19/18 09/19/18 09/19/18 02:12 01:15 00:19 POC Glucose 113 H 119 H 104 09/18/18 09/18/18 09/18/18 22:59 21:35 20:03 POC Glucose 99 116 H 70 09/18/18 09/18/18 09/18/18 18:09 16:55 15:57 POC Glucose 113 H 106 121 H 09/18/18 09/18/18 09/18/18 14:55 13:54 12:52 POC Glucose 157 H 118 H 157 H 09/18/18 09/18/18 11:51 11:17 POC Glucose 134 H 148 H Radiology Reviewed by me: Yes (chest xray reviewed) EKG Reviewed by me: Yes (nsr) Phys Exam - Physical Examination Constitutional: NAD HEENT: PERRLA, moist MMs, sclera anicteric Neck: no JVD, supple Respiratory: no wheezing, no rales, no rhonchi chest tube+, surgical site with dressing Cardiovascular: RRR, no significant murmur, no rub Gastrointestinal: soft, non-tender, no distention, positive bowel sounds Musculoskeletal: pulses present, edema present Neurological: non-focal, normal sensation Lymphatic: no nodes Psychiatric: normal affect, A&O x 3 Skin: no rash, normal turgor Dx/Plan (1) NSTEMI (non-ST elevated myocardial infarction) Code(s): I21.4 - NON-ST ELEVATION (NSTEMI) MYOCARDIAL INFARCTION Status: Acute (2) Diabetes type 2, controlled Code(s): E11.9 - TYPE 2 DIABETES MELLITUS WITHOUT COMPLICATIONS Status: Chronic (3) Dyslipidemia Code(s): E78.5 - HYPERLIPIDEMIA, UNSPECIFIED Status: Chronic (4) H/O leukemia Code(s): Z85.6 - PERSONAL HISTORY OF LEUKEMIA Status: Chronic (5) Morbid obesity with BMI of 40.0-44.9, adult Code(s): E66.01 - MORBID (SEVERE) OBESITY DUE TO EXCESS CALORIES; Z68.41 - BODY MASS INDEX (BMI) 40.0-44.9, ADULT Status: Chronic (6) 3-vessel CAD Status: Acute (7) S/P CABG x 3 Code(s): Z95.1 - PRESENCE OF AORTOCORONARY BYPASS GRAFT Status: Acute - Plan cont current plan of care * medication reviewed as below * symptomatic treatment * continue post cabg treatment protocol as per CV surgery. Review of Systems - Review of Systems ENT: negative: Ear Pain, Ear Discharge, Nose Pain, Nose Discharge, Nose Congestion, Mouth Pain, Mouth Swelling, Throat Pain, Throat Swelling, Other Respiratory: negative: Cough, Dry, Shortness of Breath, Hemoptysis, SOB with Excertion, Pleuritic Pain, Sputum, Wheezing Cardiovascular: negative: chest pain, palpitations, orthopnea, paroxysmal nocturnal dyspnea, edema, light headedness, other Gastrointestinal: negative: Nausea, Vomiting, Abdominal Pain, Diarrhea, Constipation, Melena, Hematochezia, Other Genitourinary: negative: Dysuria, Frequency, Incontinence, Hematuria, Retention , Other Musculoskeletal: negative: Neck Pain, Shoulder Pain, Arm Pain, Back Pain, Hand Pain, Leg Pain, Foot Pain, Other - Medications/Allergies Allergies/Adverse Reactions: Allergies Allergy/AdvReac Type Severity Reaction Status Date / Time No Known Drug Allergies Allergy Verified 09/17/18 22:48 Medications: Current Medications Acetaminophen (Tylenol) 650 mg PO Q6H PRN PRN Reason: Headache/Fever Or Mild Pain Hydrocodone Bitart/Acetaminophen ([place] 5/325) 1 tab PO Q4H PRN PRN Reason: Moderate Pain (4-6) Hydrocodone Bitart/Acetaminophen ([place] 5/325) 2 tab PO Q4H PRN PRN Reason: Severe Pain (7-10) Last Admin: 09/19/18 04:44 Dose: 2 tab Al Hydroxide/Mg Hydroxide (Maalox) 30 ml PO Q4H PRN PRN Reason: Indigestion Albumin Human (Albumin 5%) 12.5 gm IVPB Q6H PRN PRN Reason: To Maintain SBP> 90 mmHG Stop: 09/19/18 11:29 Albumin Human (Albumin 5%) 25 gm IVPB Q6H PRN PRN Reason: To Maintain SBP > 90 mmHG Stop: 09/19/18 11:29 Albuterol/Ipratropium (Duoneb) 3 ml NEB [id number] PRN PRN Reason: SHORTNESS OF BREATH Albuterol/Ipratropium (Duoneb) 3 ml NEB [id number] [facility] Last Admin: 09/19/18 07:21 Dose: 3 ml Aspirin (Aspirin) 325 mg PO DAILY [facility] Last Admin: 09/19/18 09:10 Dose: 325 mg Atorvastatin Calcium (Lipitor) 10 mg PO HS [facility] Last Admin: 09/18/18 21:38 Dose: 10 mg Bisacodyl (Dulcolax) 10 mg PO Q12H PRN PRN Reason: Constipation Bisacodyl (Dulcolax) 10 mg NM Q12H PRN PRN Reason: Constipation Dextrose/Water (Dextrose 50%) 25 gm SLOW IVP PRN PRN PRN Reason: PER HYPOGLYCEMIC PROTOCOL Famotidine (Pepcid) 20 mg SLOW IVP Q12HR [facility] Last Admin: 09/19/18 09:10 Dose: 20 mg Fentanyl (Sublimaze) 25 mcg SLOW IVP Q2H PRN PRN Reason: Moderate Pain (4-6) Stop: 09/20/18 11:11 Last Admin: 09/18/18 12:37 Dose: 25 mcg Fentanyl (Sublimaze) 50 mcg SLOW IVP Q2H PRN PRN Reason: Severe Pain (7-10) Stop: 09/20/18 11:11 Glucagon (Glucagon) 1 mg SC PRN PRN PRN Reason: PER HYPOGLYCEMIC PROTOCOL Guaifenesin/Dextromethorphan (Robitussin Dm) 15 ml PO Q4H PRN PRN Reason: Cough Hydralazine HCl (Apresoline) 10 mg SLOW IVP Q6H PRN PRN Reason: To Maintain SBP< 140mmHG Last Admin: 09/18/18 12:10 Dose: 10 mg Dopamine HCl/Dextrose (Dopamine/D5w) 250 mls @ 0 mls/hr IVPB PRN PRN; Protocol PRN Reason: To maintain SBP > 90 mmHG Hetastarch/Sodium Chloride (Hespan) 500 mls @ 0 mls/hr IVPB PRN PRN PRN Reason: To Maintain SBP > 90mmHg Stop: 09/19/18 11:11 Norepinephrine Bitartrate (Levophed) 250 mls @ 0 mls/hr IVPB PRN PRN; Protocol PRN Reason: To maintain SBP > 90 mmHG Nicardipine HCl 25 mg/ Sodium (Chloride) 250 mls @ 0 mls/hr IVPB INF PRN; Protocol PRN Reason: To Maintain SBP< 140mmHG Nitroglycerin/Dextrose (Nitroglycerin 50 Mg/250 Ml Bot) 250 mls @ 0 mls/hr IVPB PRN PRN; Protocol PRN Reason: To Maintain SBP< 140mmHG Last Admin: 09/18/18 12:16 Dose: 250 mls Sodium Chloride (Normal Saline 0.9%) 1,000 mls @ 100 mls/hr IV .Q10H [facility] Last Admin: 09/18/18 21:42 Dose: 1,000 mls Insulin Human Regular 100 (units/ Sodium Chloride) 101 mls @ 0 mls/hr IVPB INF [facility]; Protocol Last Admin: 09/18/18 17:34 Dose: 101 mls Dextrose/Water (D5w) 1,000 mls @ 0 mls/hr IV INF PRN PRN Reason: PRN HYPOGLYCEMIC PROTOCOL Insulin Human Regular (Humulin R) 0 units SC Q4H PRN; Protocol PRN Reason: POST OP SLIDING SCALE Ketorolac Tromethamine (Toradol) 15 mg IVP Q6HR [facility] Stop: 09/21/18 12:01 Last Admin: 09/19/18 05:29 Dose: 15 mg Morphine Sulfate (Morphine) 2 mg SLOW IVP Q15MIN PRN PRN Reason: Severe Pain (7-10) Last Admin: 09/18/18 12:02 Dose: 2 mg Ondansetron HCl (Zofran) 4 mg IVP Q6H PRN PRN Reason: Nausea/Vomiting Last Admin: 09/18/18 12:04 Dose: 4 mg Potassium Chloride (Kcl) 20 meq IVPB PRN PRN PRN Reason: K level </= 4.0 Last Admin: 09/19/18 05:28 Dose: 20 meq Promethazine HCl (Phenergan) 6.25 mg IM Q4H PRN PRN Reason: Nausea/Vomiting
[2018-09-19] MEDS: Sodium Chloride 0.9% 1,000 ML IV SCH ×2 (12:04→19:25)
[2018-09-19] MEDS ORDERED: INSULIN GLARGINE SC SCH (14:00)
--- NOTE | 2018-09-19 16:43 | EKG ---
Test Reason : POST CABG Blood Pressure : / mmHG Vent. Rate : 081 BPM Atrial Rate : 081 BPM P-R Int : 130 ms QRS Dur : 078 ms QT Int : 460 ms P-R-T Axes : 048 075 176 degrees QTc Int : 534 ms Age and gender specific ECG analysis Normal sinus rhythm Anterior ischemia Prolonged QT * ACUTE [place] * Abnormal ECG When compared with ECG of 16-SEP-2018 19:15, (Unconfirmed) QT has lengthened Confirmed by DR. Audrey HERNANDEZ ([id number]) on 09/19/2018 4:43:34 PM Referred By: CHANDNI Confirmed By:DR. Audrey HERNANDEZ
[2018-09-19] MEDS: Atorvastatin Calcium 10 MG TAB PO SCH (21:44)
[2018-09-19] MEDS: Famotidine 20 MG TAB PO SCH (21:44)
[2018-09-19] MEDS: Insulin Regular 300 UNITS/3 ML VIAL SC PRN (21:49)
[2018-09-20] MEDS: Ketorolac Tromethamine 30 MG/ML VIAL IVP SCH ×4 (00:27→19:16)
[2018-09-20 05:16] LABS: #Basophils 0.1 thou/uL (0.0-0.2); #Eosinphils 0.2 thou/uL (0.0-0.7); #Lymphocytes 2.1 thou/uL (1.20-3.40); #Monocytes 1.1 thou/uL (0.11-0.59); #Neutrophils 7.5 thou/uL (1.40-6.50); %Basophils 0.9 % (0.0-1.0); %Eosinophils 1.5 % (0.0-10.0); %Lymphocytes 19.5 % (21.0-51.0); %Monocytes 9.9 % (0.0-10.0); %Neutrophils 68.2 % (42.0-75.0); Hemoglobin 9.5 g/dL (12.0-16.0); Mean Corpuscular HGB CONC 32.5 g/dL (32.0-36.0); Mean Corpuscular Hemoglobin 25.8 pg (27.0-31.0); Mean Corpuscular Volume 79.3 fL (78.0-98.0); Mean Platelet Volume 9.1 fL (7.4-10.4); Platelet Count 214 thou/uL (130-400); RBC Distribution Width 15.7 % (11.5-14.5); Red Blood Cell (RBC) Count 3.68 mill/uL (4.20-5.40)
[2018-09-20] MEDS: Sodium Chloride 0.9% 1,000 ML IV SCH (05:17)
[2018-09-20] MEDS: Insulin Regular 300 UNITS/3 ML VIAL SC PRN ×5 (05:22→21:05)
[2018-09-20 05:37] LABS: Anion Gap 11 mmol/L (10-20); BUN (Urea Nitrogen) 4 mg/dL (7.0-18.7); Calc. Creatinine Clearance 283 mL/min (70-130); Calcium 7.3 mg/dL (7.8-10.44); Carbon Dioxide 16 mmol/L (22-29); Chloride 113 mmol/L (98-107); Estimated GFR-MDRD Greater than 90; Glucose 184 mg/dL (70-105); Potassium 4.1 mmol/L (3.5-5.1); Sodium 136 mmol/L (136-145)
[2018-09-20] MEDS: Famotidine 20 MG TAB PO SCH ×2 (07:44→21:05)
[2018-09-20] MEDS: Aspirin 325 MG TAB PO SCH (07:44)
[2018-09-20] MEDS: HYDROcodone/Acetaminophen 5/325 mg Tablet PO PRN ×3 (07:44→19:17)
--- NOTE | 2018-09-20 08:29 | PDOC.PN ---
- Subjective Encounter Start Date: 09/20/18 Encounter Start Time: 06:30 pt is doing ok, she is seated in chair, she is asymptomatic Patient seen and examined. No overnight events - Objective Resuscitation Status - Order Detail: 09/16/18 17:15 Resuscitation Status Routine Co-Sign Provider: Resuscitation Status: FULL: Full Resuscitation MAR Reviewed: Yes Vital Signs & Weight: Vital Signs (12 hours) Temp Pulse Resp Pulse Ox 09/20/18 08:00 97.6 F 96 09/20/18 07:07 96 09/20/18 07:06 102 H 21 H 96 09/20/18 04:00 98.3 F 09/20/18 00:37 95 22 H 100 09/20/18 00:00 98.8 F Weight Weight 251 lb 5.231 oz Most Recent Monitor Data Heart Rate from ECG 129 NIBP 172/111 NIBP BP-Mean 131 Respiration from ECG 19 SpO2 98 I&O: 09/19/18 09/20/18 09/21/18 06:59 06:59 06:59 Intake Total 2464.4 3158 150 Output Total 2570 3435 195 Balance -105.6 -277 -45 Result Diagrams: 09/20/18 05:10 09/20/18 05:10 Additional Labs: Accuchecks 09/20/18 09/20/18 09/19/18 07:43 05:23 21:49 POC Glucose 187 H 165 H 256 H 09/19/18 09/19/18 09/19/18 16:16 13:59 12:36 POC Glucose 216 H 232 H 195 H 09/19/18 09/19/18 11:40 09:45 POC Glucose 180 H 206 H Radiology Reviewed by me: Yes (chest xray reviewed ) EKG Reviewed by me: Yes (sinus tachycardia) Phys Exam - Physical Examination Constitutional: NAD HEENT: PERRLA, moist MMs, sclera anicteric Neck: no JVD, supple Respiratory: no wheezing, no rales, no rhonchi Cardiovascular: RRR, no significant murmur, no rub surgical site clean chest tube in place Gastrointestinal: soft, non-tender, no distention, positive bowel sounds Musculoskeletal: pulses present trace edema noted Neurological: non-focal, normal sensation Lymphatic: no nodes Psychiatric: normal affect, A&O x 3 Skin: no rash, normal turgor Dx/Plan (1) NSTEMI (non-ST elevated myocardial infarction) Code(s): I21.4 - NON-ST ELEVATION (NSTEMI) MYOCARDIAL INFARCTION Status: Acute (2) Diabetes type 2, controlled Code(s): E11.9 - TYPE 2 DIABETES MELLITUS WITHOUT COMPLICATIONS Status: Chronic (3) Dyslipidemia Code(s): E78.5 - HYPERLIPIDEMIA, UNSPECIFIED Status: Chronic (4) H/O leukemia Code(s): Z85.6 - PERSONAL HISTORY OF LEUKEMIA Status: Chronic (5) Morbid obesity with BMI of 40.0-44.9, adult Code(s): E66.01 - MORBID (SEVERE) OBESITY DUE TO EXCESS CALORIES; Z68.41 - BODY MASS INDEX (BMI) 40.0-44.9, ADULT Status: Chronic (6) 3-vessel CAD Status: Acute (7) S/P CABG x 3 Code(s): Z95.1 - PRESENCE OF AORTOCORONARY BYPASS GRAFT Status: Acute - Plan cont current plan of care * chest tube as per CV surgery * transfer to [facility] will defer to cv surgery * overall doing well and stable * medication reviewed as below * symptomatic treatment * continue post cabg protocol treatment Review of Systems - Review of Systems Eyes: negative: Pain, Vision Change, Conjunctivae Inflammation, Eyelid Inflammation, Redness, Other ENT: negative: Ear Pain, Ear Discharge, Nose Pain, Nose Discharge, Nose Congestion, Mouth Pain, Mouth Swelling, Throat Pain, Throat Swelling, Other Respiratory: negative: Cough, Dry, Shortness of Breath, Hemoptysis, SOB with Excertion, Pleuritic Pain, Sputum, Wheezing Cardiovascular: negative: chest pain, palpitations, orthopnea, paroxysmal nocturnal dyspnea, edema, light headedness, other Gastrointestinal: negative: Nausea, Vomiting, Abdominal Pain, Diarrhea, Constipation, Melena, Hematochezia, Other Genitourinary: negative: Dysuria, Frequency, Incontinence, Hematuria, Retention , Other Musculoskeletal: negative: Neck Pain, Shoulder Pain, Arm Pain, Back Pain, Hand Pain, Leg Pain, Foot Pain, Other Skin: negative: Rash, Lesions, Alexei, Bruising, Other - Medications/Allergies Allergies/Adverse Reactions: Allergies Allergy/AdvReac Type Severity Reaction Status Date / Time No Known Drug Allergies Allergy Verified 09/17/18 22:48 Medications: Current Medications Acetaminophen (Tylenol) 650 mg PO Q6H PRN PRN Reason: Headache/Fever Or Mild Pain Last Admin: 09/19/18 11:51 Dose: 650 mg Hydrocodone Bitart/Acetaminophen ([place] 5/325) 1 tab PO Q4H PRN PRN Reason: Moderate Pain (4-6) Last Admin: 09/19/18 21:45 Dose: 1 tab Hydrocodone Bitart/Acetaminophen ([place] 5/325) 2 tab PO Q4H PRN PRN Reason: Severe Pain (7-10) Last Admin: 09/20/18 07:44 Dose: 2 tab Al Hydroxide/Mg Hydroxide (Maalox) 30 ml PO Q4H PRN PRN Reason: Indigestion Albuterol/Ipratropium (Duoneb) 3 ml NEB [id number] PRN PRN Reason: SHORTNESS OF BREATH Albuterol/Ipratropium (Duoneb) 3 ml NEB [id number] [facility] Last Admin: 09/20/18 07:06 Dose: 3 ml Aspirin (Aspirin) 325 mg PO DAILY [facility] Last Admin: 09/20/18 07:44 Dose: 325 mg Atorvastatin Calcium (Lipitor) 10 mg PO HS [facility] Last Admin: 09/19/18 21:44 Dose: 10 mg Bisacodyl (Dulcolax) 10 mg PO Q12H PRN PRN Reason: Constipation Bisacodyl (Dulcolax) 10 mg [place] Q12H PRN PRN Reason: Constipation Dextrose/Water (Dextrose 50%) 25 gm SLOW IVP PRN PRN PRN Reason: PER HYPOGLYCEMIC PROTOCOL Famotidine (Pepcid) 20 mg PO Q12HR [facility] Last Admin: 09/20/18 07:44 Dose: 20 mg Fentanyl (Sublimaze) 25 mcg SLOW IVP Q2H PRN PRN Reason: Moderate Pain (4-6) Stop: 09/20/18 11:11 Last Admin: 09/18/18 12:37 Dose: 25 mcg Fentanyl (Sublimaze) 50 mcg SLOW IVP Q2H PRN PRN Reason: Severe Pain (7-10) Stop: 09/20/18 11:11 Glucagon (Glucagon) 1 mg SC PRN PRN PRN Reason: PER HYPOGLYCEMIC PROTOCOL Guaifenesin/Dextromethorphan (Robitussin Dm) 15 ml PO Q4H PRN PRN Reason: Cough Hydralazine HCl (Apresoline) 10 mg SLOW IVP Q6H PRN PRN Reason: To Maintain SBP< 140mmHG Last Admin: 09/18/18 12:10 Dose: 10 mg Dopamine HCl/Dextrose (Dopamine/D5w) 250 mls @ 0 mls/hr IVPB PRN PRN; Protocol PRN Reason: To maintain SBP > 90 mmHG Norepinephrine Bitartrate (Levophed) 250 mls @ 0 mls/hr IVPB PRN PRN; Protocol PRN Reason: To maintain SBP > 90 mmHG Nicardipine HCl 25 mg/ Sodium (Chloride) 250 mls @ 0 mls/hr IVPB INF PRN; Protocol PRN Reason: To Maintain SBP< 140mmHG Nitroglycerin/Dextrose (Nitroglycerin 50 Mg/250 Ml Bot) 250 mls @ 0 mls/hr IVPB PRN PRN; Protocol PRN Reason: To Maintain SBP< 140mmHG Last Admin: 09/18/18 12:16 Dose: 250 mls Sodium Chloride (Normal Saline 0.9%) 1,000 mls @ 100 mls/hr IV .Q10H [facility] Last Admin: 09/20/18 05:17 Dose: 1,000 mls Insulin Human Regular 100 (units/ Sodium Chloride) 101 mls @ 0 mls/hr IVPB INF [facility]; Protocol Last Admin: 09/18/18 17:34 Dose: 101 mls Dextrose/Water (D5w) 1,000 mls @ 0 mls/hr IV INF PRN PRN Reason: PRN HYPOGLYCEMIC PROTOCOL Insulin Human Regular (Humulin R) 0 units SC Q4H PRN; Protocol PRN Reason: POST OP SLIDING SCALE Last Admin: 09/20/18 07:45 Dose: 4 unit Ketorolac Tromethamine (Toradol) 15 mg IVP Q6HR [facility] Stop: 09/21/18 12:01 Last Admin: 09/20/18 05:17 Dose: 15 mg Morphine Sulfate (Morphine) 2 mg SLOW IVP Q15MIN PRN PRN Reason: Severe Pain (7-10) Last Admin: 09/18/18 12:02 Dose: 2 mg Ondansetron HCl (Zofran) 4 mg IVP Q6H PRN PRN Reason: Nausea/Vomiting Last Admin: 09/18/18 12:04 Dose: 4 mg Potassium Chloride (Kcl) 20 meq IVPB PRN PRN PRN Reason: K level </= 4.0 Last Admin: 09/19/18 05:28 Dose: 20 meq Promethazine HCl (Phenergan) 6.25 mg IM Q4H PRN PRN Reason: Nausea/Vomiting
--- NOTE | 2018-09-20 09:47 | RAD ---
CHEST 1 VIEW: HISTORY: Status post open heart surgery. COMPARISON: 09/19/2018. FINDINGS: Sternotomy wires, mediastinal drainage catheter, and right-sided central venous catheter are once aga in demonstrated. Limited evaluation of the cardiac silhouette due to leftward rotation. There does appear to be opacification of the left lung base which may represent atelectasis or possibly pneumoni a. A small effusion in the left lung base cannot be completely excluded. No pneumothorax. IMPRESSION: Findings compatible with recent open heart surgery. POS: ROBB
--- NOTE | 2018-09-20 11:16 | PRG ---
DATE OF SERVICE: 09/20/2018 OBJECTIVE: She is doing well, had no acute complaints today. PHYSICAL EXAMINATION: VITAL SIGNS: Temperature is 97.6, pulse 96, blood pressure 107/66, O2 saturation 100%. HEENT: Unremarkable. NECK: No JVD. CHEST: Clear. CARDIAC: S1, S2. Regular. ABDOMEN: Soft. EXTREMITIES: Trace edema. LABORATORY DATA: White count 11, hematocrit 29.2, and platelet count 214. Sodium 136, potassium 4.1, BUN 4, creatinine 0.5 glucose 184. IMAGING: Chest x-ray shows no acute change. ASSESSMENT: 1. Status post coronary artery bypass grafting surgery. 2. Diabetes mellitus. 3. Obstructive sleep apnea, which is probable. 4. Obesity. PLAN: Transfer to floor when okay with CV surgery. Hopefully, chest tube out soon. Job ID: [id number]
[2018-09-20] MEDS ORDERED: Furosemide 40 MG/4 ML VIAL SLOW IVP SCH (11:30)
[2018-09-20] MEDS: glipiZIDE 10 MG TAB PO SCH (21:02)
[2018-09-20] MEDS: Atorvastatin Calcium 10 MG TAB PO SCH (21:02)
[2018-09-21] MEDS: Ketorolac Tromethamine 30 MG/ML VIAL IVP SCH ×3 (00:10→12:47)
[2018-09-21 05:32] LABS: #Eosinphils 0.3 thou/uL (0.0-0.7); #Lymphocytes 2.3 thou/uL (1.20-3.40); #Monocytes 0.8 thou/uL (0.11-0.59); #Neutrophils 7.1 thou/uL (1.40-6.50); %Basophils 0.3 % (0.0-1.0); %Eosinophils 2.5 % (0.0-10.0); %Lymphocytes 21.8 % (21.0-51.0); %Monocytes 7.7 % (0.0-10.0); %Neutrophils 67.7 % (42.0-75.0); Hemoglobin 9.7 g/dL (12.0-16.0); Mean Corpuscular Hemoglobin 25.6 pg (27.0-31.0); Mean Corpuscular Volume 79.9 fL (78.0-98.0); Mean Platelet Volume 9.5 fL (7.4-10.4); Platelet Count 266 thou/uL (130-400); RBC Distribution Width 15.8 % (11.5-14.5); Red Blood Cell (RBC) Count 3.79 mill/uL (4.20-5.40); White Blood Cell (WBC) Count 10.5 thou/uL (4.8-10.8)
[2018-09-21 05:59] LABS: Anion Gap 11 mmol/L (10-20); BUN (Urea Nitrogen) 6 mg/dL (7.0-18.7); Calc. Creatinine Clearance 299 mL/min (70-130); Carbon Dioxide 21 mmol/L (22-29); Chloride 109 mmol/L (98-107); Estimated GFR-MDRD Greater than 90; Glucose 169 mg/dL (70-105); Potassium 3.6 mmol/L (3.5-5.1); Sodium 137 mmol/L (136-145)
[2018-09-21] MEDS: HYDROcodone/Acetaminophen 5/325 mg Tablet PO PRN ×3 (06:16→21:40)
[2018-09-21] MEDS: Potassium Chloride 20 MEQ/100 ML PREMIX BAG IVPB PRN (06:16)
[2018-09-21] MEDS: Insulin Regular 300 UNITS/3 ML VIAL SC PRN ×3 (06:17→22:10)
[2018-09-21] MEDS: Aspirin 325 MG TAB PO SCH (08:39)
[2018-09-21] MEDS: Famotidine 20 MG TAB PO SCH ×2 (08:39→21:39)
[2018-09-21] MEDS: glipiZIDE 10 MG TAB PO SCH ×2 (08:40→21:39)
--- NOTE | 2018-09-21 10:00 | RAD ---
PORTABLE CHEST: 09/21/2018 PROVIDED CLINICAL HISTORY: Post open heart. COMPARISON: 09/20/2018 FINDINGS: Interval improvement in aeration of the left lung base. Additional significant interval change, with respect to the prior examination, is not apparent. IMPRESSION: As above. POS: ROBB
--- NOTE | 2018-09-21 12:27 | PDOC.PN ---
- Subjective Encounter Start Date: 09/21/18 Encounter Start Time: 07:30 Patient seen and examined. No new complaints. No overnight events - Objective Resuscitation Status - Order Detail: 09/16/18 17:15 Resuscitation Status Routine Co-Sign Provider: Resuscitation Status: FULL: Full Resuscitation MAR Reviewed: Yes Vital Signs & Weight: Vital Signs (12 hours) Temp Pulse Resp Pulse Ox 09/21/18 08:00 98.4 F 100 09/21/18 07:01 99 09/21/18 07:00 99 16 99 09/21/18 04:00 98.5 F Weight Weight 269 lb 2.951 oz Most Recent Monitor Data Heart Rate from ECG 88 NIBP 104/79 NIBP BP-Mean 87 Respiration from ECG 15 SpO2 99 I&O: 09/20/18 09/21/18 09/22/18 06:59 06:59 06:59 Intake Total 3158 1435 700 Output Total 3435 4605 510 Balance -277 -3170 190 Result Diagrams: 09/21/18 04:35 09/21/18 04:35 Additional Labs: Accuchecks 09/21/18 09/20/18 09/20/18 05:05 21:06 16:11 POC Glucose 170 H 282 H 275 H 09/18/18 09/18/18 09/18/18 10:19 09:54 09:22 POC Glucose 175 H 179 H 208 H EKG Reviewed by me: Yes (nsr) Phys Exam - Physical Examination Constitutional: NAD HEENT: PERRLA, moist MMs, sclera anicteric Neck: no JVD, supple Respiratory: no wheezing, no rales, no rhonchi Cardiovascular: RRR, no significant murmur, no rub Gastrointestinal: soft, non-tender, no distention, positive bowel sounds Musculoskeletal: no edema, pulses present Neurological: non-focal, normal sensation Lymphatic: no nodes Psychiatric: normal affect, A&O x 3 Skin: no rash, normal turgor Dx/Plan (1) NSTEMI (non-ST elevated myocardial infarction) Code(s): I21.4 - NON-ST ELEVATION (NSTEMI) MYOCARDIAL INFARCTION Status: Acute (2) Diabetes type 2, controlled Code(s): E11.9 - TYPE 2 DIABETES MELLITUS WITHOUT COMPLICATIONS Status: Chronic (3) Dyslipidemia Code(s): E78.5 - HYPERLIPIDEMIA, UNSPECIFIED Status: Chronic (4) H/O leukemia Code(s): Z85.6 - PERSONAL HISTORY OF LEUKEMIA Status: Chronic (5) Morbid obesity with BMI of 40.0-44.9, adult Code(s): E66.01 - MORBID (SEVERE) OBESITY DUE TO EXCESS CALORIES; Z68.41 - BODY MASS INDEX (BMI) 40.0-44.9, ADULT Status: Chronic (6) 3-vessel CAD Status: Acute (7) S/P CABG x 3 Code(s): Z95.1 - PRESENCE OF AORTOCORONARY BYPASS GRAFT Status: Acute - Plan cont current plan of care * stable and improving * continue care as per CV surgery * today transferred to tele * medication reviewed as below * symptomatic treatment * cardiac rehab. Review of Systems - Review of Systems ENT: negative: Ear Pain, Ear Discharge, Nose Pain, Nose Discharge, Nose Congestion, Mouth Pain, Mouth Swelling, Throat Pain, Throat Swelling, Other Respiratory: negative: Cough, Dry, Shortness of Breath, Hemoptysis, SOB with Excertion, Pleuritic Pain, Sputum, Wheezing Cardiovascular: negative: chest pain, palpitations, orthopnea, paroxysmal nocturnal dyspnea, edema, light headedness, other Gastrointestinal: negative: Nausea, Vomiting, Abdominal Pain, Diarrhea, Constipation, Melena, Hematochezia, Other Genitourinary: negative: Dysuria, Frequency, Incontinence, Hematuria, Retention , Other Musculoskeletal: negative: Neck Pain, Shoulder Pain, Arm Pain, Back Pain, Hand Pain, Leg Pain, Foot Pain, Other - Medications/Allergies Allergies/Adverse Reactions: Allergies Allergy/AdvReac Type Severity Reaction Status Date / Time No Known Drug Allergies Allergy Verified 09/17/18 22:48 Medications: Current Medications Acetaminophen (Tylenol) 650 mg PO Q6H PRN PRN Reason: Headache/Fever Or Mild Pain Last Admin: 09/19/18 11:51 Dose: 650 mg Hydrocodone Bitart/Acetaminophen ([place] 5/325) 1 tab PO Q4H PRN PRN Reason: Moderate Pain (4-6) Last Admin: 09/20/18 19:17 Dose: 1 tab Hydrocodone Bitart/Acetaminophen ([place] 5/325) 2 tab PO Q4H PRN PRN Reason: Severe Pain (7-10) Last Admin: 09/21/18 10:46 Dose: 2 tab Al Hydroxide/Mg Hydroxide (Maalox) 30 ml PO Q4H PRN PRN Reason: Indigestion Albuterol/Ipratropium (Duoneb) 3 ml NEB Q9NS-DS PRN PRN Reason: SHORTNESS OF BREATH Albuterol/Ipratropium (Duoneb) 3 ml NEB [id number] [facility] Last Admin: 09/21/18 07:00 Dose: 3 ml Aspirin (Aspirin) 325 mg PO DAILY [facility] Last Admin: 09/21/18 08:39 Dose: 325 mg Atorvastatin Calcium (Lipitor) 10 mg PO HS [facility] Last Admin: 09/20/18 21:02 Dose: 10 mg Bisacodyl (Dulcolax) 10 mg PO Q12H PRN PRN Reason: Constipation Bisacodyl (Dulcolax) 10 mg [place] Q12H PRN PRN Reason: Constipation Dextrose/Water (Dextrose 50%) 25 gm SLOW IVP PRN PRN PRN Reason: PER HYPOGLYCEMIC PROTOCOL Famotidine (Pepcid) 20 mg PO Q12HR [facility] Last Admin: 09/21/18 08:39 Dose: 20 mg Glipizide (Glucotrol) 10 mg PO BID [facility] Last Admin: 09/21/18 08:40 Dose: 10 mg Glucagon (Glucagon) 1 mg SC PRN PRN PRN Reason: PER HYPOGLYCEMIC PROTOCOL Guaifenesin/Dextromethorphan (Robitussin Dm) 15 ml PO Q4H PRN PRN Reason: Cough Hydralazine HCl (Apresoline) 10 mg SLOW IVP Q6H PRN PRN Reason: To Maintain SBP< 140mmHG Last Admin: 09/18/18 12:10 Dose: 10 mg Dextrose/Water (D5w) 1,000 mls @ 0 mls/hr IV INF PRN PRN Reason: PRN HYPOGLYCEMIC PROTOCOL Insulin Human Regular (Humulin R) 0 units SC Q4H PRN; Protocol PRN Reason: POST OP SLIDING SCALE Last Admin: 09/21/18 06:17 Dose: 4 unit Ondansetron HCl (Zofran) 4 mg IVP Q6H PRN PRN Reason: Nausea/Vomiting Last Admin: 09/18/18 12:04 Dose: 4 mg Potassium Chloride (Kcl) 20 meq IVPB PRN PRN PRN Reason: K level </= 4.0 Last Admin: 09/21/18 06:16 Dose: 20 meq Promethazine HCl (Phenergan) 6.25 mg IM Q4H PRN PRN Reason: Nausea/Vomiting
[2018-09-21] MEDS ORDERED: Furosemide 40 MG TAB PO SCH ×2 (12:38→12:45)
[2018-09-21] MEDS ORDERED: Zolpidem Tartrate 5 MG TAB PO PRN (12:38)
[2018-09-21] MEDS ORDERED: Mineral Oil ENEMA PR PRN (12:38)
[2018-09-21] MEDS ORDERED: Bisacodyl 5 MG TAB PO PRN (12:38)
[2018-09-21] MEDS ORDERED: Metoprolol Tartrate 25 MG TAB PO SCH ×2 (12:38→12:45)
[2018-09-21] MEDS ORDERED: Mag-Al 1200 mg/1200 mg/30 ML UDCUP PO PRN (12:38)
[2018-09-21] MEDS ORDERED: Nitroglycerin 0.4 MG TAB (25 Tab Bottle) SL PRN (12:38)
[2018-09-21] MEDS ORDERED: Milk Of Magnesia 30 ML UDCUP PO PRN (12:38)
[2018-09-21] MEDS ORDERED: Artificial Tears 18 DROP/0.9 ML EA EYE PRN (12:38)
[2018-09-21] MEDS ORDERED: Bisacodyl 10 MG SUPP PR PRN (12:38)
[2018-09-21] MEDS ORDERED: Guaifenesin DM 100-10/5 ML UDCUP PO PRN (12:38)
[2018-09-21] MEDS ORDERED: Aspirin 325 mg Enteric Coated Tablet PO SCH ×2 (12:38→12:45)
[2018-09-21] MEDS ORDERED: diphenhydrAMINE 25 MG CAP PO PRN (12:38)
[2018-09-21] MEDS: Atorvastatin Calcium 10 MG TAB PO SCH (21:39)
[2018-09-21] MEDS: Metoprolol Tartrate 25 MG TAB PO SCH (21:39)
[2018-09-22] MEDS: HYDROcodone/Acetaminophen 5/325 mg Tablet PO PRN ×3 (05:38→16:15)
[2018-09-22] MEDS: Insulin Regular 300 UNITS/3 ML VIAL SC PRN ×2 (06:31→20:32)
[2018-09-22] MEDS: glipiZIDE 10 MG TAB PO SCH ×2 (08:34→20:30)
[2018-09-22] MEDS: metFORMIN 500 MG TAB PO SCH ×2 (08:34→17:05)
[2018-09-22] MEDS: Metoprolol Tartrate 25 MG TAB PO SCH ×2 (08:35→20:30)
[2018-09-22] MEDS: Aspirin 325 mg Enteric Coated Tablet PO SCH (08:35)
[2018-09-22] MEDS: Famotidine 20 MG TAB PO SCH ×2 (08:35→20:30)
[2018-09-22] MEDS: Potassium Chloride 20 MEQ TAB PO SCH (08:36)
[2018-09-22] MEDS: Furosemide 80 MG TAB PO SCH (08:36)
[2018-09-22] MEDS ORDERED: Furosemide 40 MG TAB PO SCH (09:00)
--- NOTE | 2018-09-22 10:43 | PDOC.PN ---
- Subjective Encounter Start Date: 09/22/18 Encounter Start Time: 07:50 Patient seen and examined. No new complaints. No overnight events - Objective Resuscitation Status - Order Detail: 09/16/18 17:15 Resuscitation Status Routine Co-Sign Provider: Resuscitation Status: FULL: Full Resuscitation MAR Reviewed: Yes Vital Signs & Weight: Vital Signs (12 hours) Temp Pulse Resp BP BP Pulse Ox 09/22/18 08:00 98.1 F 97 18 133/99 H 97 09/22/18 07:38 95 16 95 09/22/18 03:10 98.5 F 91 16 112/54 L 98 09/22/18 00:06 104 H 20 96 09/22/18 00:00 98.2 F 99 20 101/55 L 96 Weight Weight 271 lb 2 oz Most Recent Monitor Data Heart Rate from ECG 88 NIBP 104/79 NIBP BP-Mean 87 Respiration from ECG 15 SpO2 99 I&O: 09/21/18 09/22/18 09/23/18 06:59 06:59 06:59 Intake Total 1435 1720 Output Total 4605 1310 Balance -3170 410 Result Diagrams: 09/21/18 04:35 09/21/18 04:35 Additional Labs: Accuchecks 09/22/18 09/21/18 09/21/18 05:31 20:32 16:47 POC Glucose 201 H 338 H 281 H Phys Exam - Physical Examination Constitutional: NAD HEENT: PERRLA, moist MMs, sclera anicteric Neck: no JVD, supple Respiratory: no wheezing, no rales, no rhonchi Cardiovascular: RRR, no significant murmur, no rub Gastrointestinal: soft, non-tender, no distention, positive bowel sounds wound with wound vac+ Neurological: non-focal Lymphatic: no nodes Psychiatric: normal affect Skin: no rash, normal turgor Dx/Plan (1) NSTEMI (non-ST elevated myocardial infarction) Code(s): I21.4 - NON-ST ELEVATION (NSTEMI) MYOCARDIAL INFARCTION Status: Acute (2) Diabetes type 2, controlled Code(s): E11.9 - TYPE 2 DIABETES MELLITUS WITHOUT COMPLICATIONS Status: Chronic (3) Dyslipidemia Code(s): E78.5 - HYPERLIPIDEMIA, UNSPECIFIED Status: Chronic (4) H/O leukemia Code(s): Z85.6 - PERSONAL HISTORY OF LEUKEMIA Status: Chronic (5) Morbid obesity with BMI of 40.0-44.9, adult Code(s): E66.01 - MORBID (SEVERE) OBESITY DUE TO EXCESS CALORIES; Z68.41 - BODY MASS INDEX (BMI) 40.0-44.9, ADULT Status: Chronic (6) 3-vessel CAD Status: Acute (7) S/P CABG x 3 Code(s): Z95.1 - PRESENCE OF AORTOCORONARY BYPASS GRAFT Status: Acute - Plan cont current plan of care * medication reviewed as below * symptomatic treatment * medically stable * post op care * pain controlled. * continue glipizide and metformin * continue sliding scale insulin Review of Systems - Review of Systems ENT: negative: Ear Pain, Ear Discharge, Nose Pain, Nose Discharge, Nose Congestion, Mouth Pain, Mouth Swelling, Throat Pain, Throat Swelling, Other Respiratory: negative: Cough, Dry, Shortness of Breath, Hemoptysis, SOB with Excertion, Pleuritic Pain, Sputum, Wheezing Cardiovascular: negative: chest pain, palpitations, orthopnea, paroxysmal nocturnal dyspnea, edema, light headedness, other Gastrointestinal: negative: Nausea, Vomiting, Abdominal Pain, Diarrhea, Constipation, Melena, Hematochezia, Other Genitourinary: negative: Dysuria, Frequency, Incontinence, Hematuria, Retention , Other Musculoskeletal: negative: Neck Pain, Shoulder Pain, Arm Pain, Back Pain, Hand Pain, Leg Pain, Foot Pain, Other Skin: negative: Rash, Lesions, Alexei, Bruising, Other - Medications/Allergies Allergies/Adverse Reactions: Allergies Allergy/AdvReac Type Severity Reaction Status Date / Time No Known Drug Allergies Allergy Verified 09/17/18 22:48 Medications: Current Medications Acetaminophen (Tylenol) 650 mg PO Q6H PRN PRN Reason: Headache/Fever Or Mild Pain Last Admin: 09/19/18 11:51 Dose: 650 mg Hydrocodone Bitart/Acetaminophen ([place] 5/325) 1 tab PO Q4H PRN PRN Reason: Moderate Pain (4-6) Last Admin: 09/20/18 19:17 Dose: 1 tab Hydrocodone Bitart/Acetaminophen ([place] 5/325) 2 tab PO Q4H PRN PRN Reason: Severe Pain (7-10) Last Admin: 09/22/18 05:38 Dose: 2 tab Al Hydroxide/Mg Hydroxide (Maalox) 30 ml PO Q4H PRN PRN Reason: Indigestion Albuterol/Ipratropium (Duoneb) 3 ml NEB [id number] PRN PRN Reason: SHORTNESS OF BREATH Albuterol/Ipratropium (Duoneb) 3 ml NEB [id number] [facility] Last Admin: 09/22/18 07:38 Dose: 3 ml Aspirin (Ecotrin) 325 mg PO DAILY [facility] Last Admin: 09/22/18 08:35 Dose: 325 mg Atorvastatin Calcium (Lipitor) 20 mg PO HS [facility] Bisacodyl (Dulcolax) 10 mg PO Q12H PRN PRN Reason: Constipation Bisacodyl (Dulcolax) 10 mg [place] Q12H PRN PRN Reason: Constipation Dextrose/Water (Dextrose 50%) 25 gm SLOW IVP PRN PRN PRN Reason: PER HYPOGLYCEMIC PROTOCOL Diphenhydramine HCl (Benadryl) 25 mg PO Q6H PRN PRN Reason: Itching & Insomnia or Robby Galo Famotidine (Pepcid) 20 mg PO Q12HR [facility] Last Admin: 09/22/18 08:35 Dose: 20 mg Furosemide (Lasix) 80 mg PO DAILY [facility] Last Admin: 09/22/18 08:36 Dose: 80 mg Glipizide (Glucotrol) 10 mg PO BID [facility] Last Admin: 09/22/18 08:34 Dose: 10 mg Glucagon (Glucagon) 1 mg SC PRN PRN PRN Reason: PER HYPOGLYCEMIC PROTOCOL Guaifenesin/Dextromethorphan (Robitussin Dm) 15 ml PO Q4H PRN PRN Reason: Cough Hydralazine HCl (Apresoline) 10 mg SLOW IVP Q6H PRN PRN Reason: To Maintain SBP< 140mmHG Last Admin: 09/18/18 12:10 Dose: 10 mg Dextrose/Water (D5w) 1,000 mls @ 0 mls/hr IV INF PRN PRN Reason: PRN HYPOGLYCEMIC PROTOCOL Insulin Human Regular (Humulin R) 0 units [place] Q4H PRN; Protocol PRN Reason: POST OP SLIDING SCALE Last Admin: 09/22/18 06:31 Dose: 6 unit Magnesium Hydroxide (Milk Of Magnesium) 30 ml PO Q12H PRN PRN Reason: Constipation Metformin HCl (Glucophage) 1,000 mg PO BID[facility] Last Admin: 09/22/18 08:34 Dose: 1,000 mg Metoprolol Tartrate (Lopressor) 12.5 mg PO BID [facility] Last Admin: 09/22/18 08:35 Dose: 12.5 mg Mineral Oil (Fleet Mineral Oil) 133 ml [place] DAILYPRN PRN PRN Reason: Constipation Nitroglycerin (Nitrostat) 0.4 mg SL Q5MIN PRN PRN Reason: Chest Pain Ondansetron HCl (Zofran) 4 mg IVP Q6H PRN PRN Reason: Nausea/Vomiting Last Admin: 09/18/18 12:04 Dose: 4 mg Potassium Chloride (Kcl) 20 meq IVPB PRN PRN PRN Reason: K level </= 4.0 Last Admin: 09/21/18 06:16 Dose: 20 meq Potassium Chloride (K-Dur) 20 meq PO [facility] Last Admin: 09/22/18 08:36 Dose: 20 meq Promethazine HCl (Phenergan) 6.25 mg IM Q4H PRN PRN Reason: Nausea/Vomiting Sertraline HCl (Zoloft) 25 mg PO DAILY [facility] Sodium Chloride (Flush - Normal Saline) 10 ml IVF PRN PRN PRN Reason: Saline Flush Sodium Chloride (Flush - Normal Saline) 10 ml IVF Q12HR [facility] Last Admin: 09/22/18 08:37 Dose: 10 ml Sodium Chloride (Flush - Normal Saline) 10 ml IVF PRN PRN PRN Reason: Saline Flush Zolpidem Tartrate (Ambien) 5 mg PO HSPRN PRN PRN Reason: Insomnia
[2018-09-22] MEDS ORDERED: Dextrose 5% in Water 1,000 ML IV PRN (10:45)
[2018-09-22] MEDS ORDERED: HumuLIN 70/30 (300 UNITS/3 ML VIAL) SC SCH (11:30)
[2018-09-22] MEDS: HumuLIN 70/30 (300 UNITS/3 ML VIAL) SC SCH (17:06)
[2018-09-22] MEDS: Atorvastatin Calcium 20 MG TAB PO SCH (20:30)
[2018-09-23] MEDS: HYDROcodone/Acetaminophen 5/325 mg Tablet PO PRN ×2 (06:07→16:10)
[2018-09-23] MEDS ORDERED: Metoprolol Tartrate 25 MG TAB PO SCH (06:48)
[2018-09-23] MEDS: Aspirin 325 mg Enteric Coated Tablet PO SCH (08:06)
[2018-09-23] MEDS: glipiZIDE 10 MG TAB PO SCH ×2 (08:06→20:41)
[2018-09-23] MEDS: Potassium Chloride 20 MEQ TAB PO SCH (08:06)
[2018-09-23] MEDS: Metoprolol Tartrate 25 MG TAB PO SCH ×2 (08:06→20:42)
[2018-09-23] MEDS: Famotidine 20 MG TAB PO SCH ×2 (08:06→20:42)
[2018-09-23] MEDS: Furosemide 80 MG TAB PO SCH (08:06)
[2018-09-23] MEDS: metFORMIN 500 MG TAB PO SCH ×2 (08:06→17:43)
[2018-09-23] MEDS: HumuLIN 70/30 (300 UNITS/3 ML VIAL) SC SCH ×3 (08:07→17:43)
[2018-09-23] MEDS: Insulin Regular 300 UNITS/3 ML VIAL SC PRN ×4 (08:07→20:43)
--- NOTE | 2018-09-23 09:53 | PDOC.PN ---
- Subjective Encounter Start Date: 09/23/18 Encounter Start Time: 07:50 Patient seen and examined. No new complaints. No overnight events - Objective Resuscitation Status - Order Detail: 09/16/18 17:15 Resuscitation Status Routine Co-Sign Provider: Resuscitation Status: FULL: Full Resuscitation MAR Reviewed: Yes Vital Signs & Weight: Vital Signs (12 hours) Temp Pulse Resp BP Pulse Ox 09/23/18 07:59 97.8 F 81 16 110/55 L 98 09/23/18 07:04 89 18 95 09/23/18 03:05 97.7 F 95 16 106/56 L 96 09/23/18 00:11 94 18 96 Weight Weight 266 lb 4.8 oz Most Recent Monitor Data Heart Rate from ECG 88 NIBP 104/79 NIBP BP-Mean 87 Respiration from ECG 15 SpO2 99 I&O: 09/22/18 09/23/18 09/24/18 06:59 06:59 06:59 Intake Total 1720 1200 Output Total 1310 1000 Balance 410 200 Result Diagrams: 09/21/18 04:35 09/21/18 04:35 Additional Labs: Accuchecks 09/23/18 09/22/18 09/22/18 05:25 20:15 16:41 POC Glucose 236 H 205 H 268 H 09/22/18 10:47 POC Glucose 346 H EKG Reviewed by me: Yes (nsr) Phys Exam - Physical Examination Constitutional: NAD HEENT: PERRLA, moist MMs, sclera anicteric Neck: no JVD, supple Respiratory: no wheezing, no rales, no rhonchi Cardiovascular: RRR, no significant murmur, no rub surgical site clean Gastrointestinal: soft, non-tender, no distention, positive bowel sounds Musculoskeletal: no edema, pulses present Neurological: non-focal, normal sensation Lymphatic: no nodes Psychiatric: normal affect, A&O x 3 Skin: no rash, normal turgor Dx/Plan (1) NSTEMI (non-ST elevated myocardial infarction) Code(s): I21.4 - NON-ST ELEVATION (NSTEMI) MYOCARDIAL INFARCTION Status: Acute (2) Diabetes type 2, controlled Code(s): E11.9 - TYPE 2 DIABETES MELLITUS WITHOUT COMPLICATIONS Status: Chronic (3) Dyslipidemia Code(s): E78.5 - HYPERLIPIDEMIA, UNSPECIFIED Status: Chronic (4) H/O leukemia Code(s): Z85.6 - PERSONAL HISTORY OF LEUKEMIA Status: Chronic (5) Morbid obesity with BMI of 40.0-44.9, adult Code(s): E66.01 - MORBID (SEVERE) OBESITY DUE TO EXCESS CALORIES; Z68.41 - BODY MASS INDEX (BMI) 40.0-44.9, ADULT Status: Chronic (6) 3-vessel CAD Status: Acute (7) S/P CABG x 3 Code(s): Z95.1 - PRESENCE OF AORTOCORONARY BYPASS GRAFT Status: Acute - Plan cont current plan of care * medication reviewed as below * symptomatic treatment * increase insulin 70/30 15 unit sc ac * likely discharge tomorrow. Review of Systems - Review of Systems ENT: negative: Ear Pain, Ear Discharge, Nose Pain, Nose Discharge, Nose Congestion, Mouth Pain, Mouth Swelling, Throat Pain, Throat Swelling, Other Respiratory: negative: Cough, Dry, Shortness of Breath, Hemoptysis, SOB with Excertion, Pleuritic Pain, Sputum, Wheezing Cardiovascular: negative: chest pain, palpitations, orthopnea, paroxysmal nocturnal dyspnea, edema, light headedness, other Gastrointestinal: negative: Nausea, Vomiting, Abdominal Pain, Diarrhea, Constipation, Melena, Hematochezia, Other Genitourinary: negative: Dysuria, Frequency, Incontinence, Hematuria, Retention , Other Musculoskeletal: negative: Neck Pain, Shoulder Pain, Arm Pain, Back Pain, Hand Pain, Leg Pain, Foot Pain, Other Skin: negative: Rash, Lesions, Alexei, Bruising, Other - Medications/Allergies Allergies/Adverse Reactions: Allergies Allergy/AdvReac Type Severity Reaction Status Date / Time No Known Drug Allergies Allergy Verified 09/17/18 22:48 Medications: Current Medications Acetaminophen (Tylenol) 650 mg PO Q6H PRN PRN Reason: Headache/Fever Or Mild Pain Last Admin: 09/19/18 11:51 Dose: 650 mg Hydrocodone Bitart/Acetaminophen (Mcpherson 5/325) 1 tab PO Q4H PRN PRN Reason: Moderate Pain (4-6) Last Admin: 09/22/18 12:49 Dose: 1 tab Hydrocodone Bitart/Acetaminophen (Mcpherson 5/325) 2 tab PO Q4H PRN PRN Reason: Severe Pain (7-10) Last Admin: 09/23/18 06:07 Dose: 2 tab Al Hydroxide/Mg Hydroxide (Maalox) 30 ml PO Q4H PRN PRN Reason: Indigestion Albuterol/Ipratropium (Duoneb) 3 ml NEB [id number] PRN PRN Reason: SHORTNESS OF BREATH Albuterol/Ipratropium (Duoneb) 3 ml NEB [id number] [facility] Last Admin: 09/23/18 07:04 Dose: 3 ml Aspirin (Ecotrin) 325 mg PO DAILY [facility] Last Admin: 09/23/18 08:06 Dose: 325 mg Atorvastatin Calcium (Lipitor) 20 mg PO HS [facility] Last Admin: 09/22/18 20:30 Dose: 20 mg Bisacodyl (Dulcolax) 10 mg PO Q12H PRN PRN Reason: Constipation Bisacodyl (Dulcolax) 10 mg AK Q12H PRN PRN Reason: Constipation Dextrose/Water (Dextrose 50%) 25 gm SLOW IVP PRN PRN PRN Reason: PER HYPOGLYCEMIC PROTOCOL Diphenhydramine HCl (Benadryl) 25 mg PO Q6H PRN PRN Reason: Itching & Insomnia or Robby Galo Famotidine (Pepcid) 20 mg PO Q12HR [facility] Last Admin: 09/23/18 08:06 Dose: 20 mg Furosemide (Lasix) 80 mg PO DAILY [facility] Last Admin: 09/23/18 08:06 Dose: 80 mg Glipizide (Glucotrol) 10 mg PO BID [facility] Last Admin: 09/23/18 08:06 Dose: 10 mg Glucagon (Glucagon) 1 mg SC PRN PRN PRN Reason: PER HYPOGLYCEMIC PROTOCOL Guaifenesin/Dextromethorphan (Robitussin Dm) 15 ml PO Q4H PRN PRN Reason: Cough Dextrose/Water (D5w) 1,000 mls @ 0 mls/hr IV INF PRN PRN Reason: PRN HYPOGLYCEMIC PROTOCOL Dextrose/Water (D5w) 1,000 mls @ 0 mls/hr IV .Q0M PRN PRN Reason: Hypoglycemia Insulin Human Isoph/Insulin Regular (Humulin 70/30) 10 units SC [facility] Last Admin: 09/23/18 08:07 Dose: 10 unit Insulin Human Regular (Humulin R) 0 units SC Q4H PRN; Protocol PRN Reason: POST OP SLIDING SCALE Last Admin: 09/23/18 08:07 Dose: 6 unit Magnesium Hydroxide (Milk Of Magnesium) 30 ml PO Q12H PRN PRN Reason: Constipation Metformin HCl (Glucophage) 1,000 mg PO BID-[facility] Last Admin: 09/23/18 08:06 Dose: 1,000 mg Metoprolol Tartrate (Lopressor) 25 mg PO BID [facility] Last Admin: 09/23/18 08:06 Dose: 25 mg Mineral Oil (Fleet Mineral Oil) 133 ml [place] DAILYPRN PRN PRN Reason: Constipation Nitroglycerin (Nitrostat) 0.4 mg SL Q5MIN PRN PRN Reason: Chest Pain Ondansetron HCl (Zofran) 4 mg IVP Q6H PRN PRN Reason: Nausea/Vomiting Last Admin: 09/18/18 12:04 Dose: 4 mg Potassium Chloride (Kcl) 20 meq IVPB PRN PRN PRN Reason: K level </= 4.0 Last Admin: 09/21/18 06:16 Dose: 20 meq Potassium Chloride (K-Dur) 20 meq PO QA-[facility] Last Admin: 09/23/18 08:06 Dose: 20 meq Promethazine HCl (Phenergan) 6.25 mg IM Q4H PRN PRN Reason: Nausea/Vomiting Sertraline HCl (Zoloft) 25 mg PO DAILY [facility] Last Admin: 09/23/18 08:06 Dose: 25 mg Sodium Chloride (Flush - Normal Saline) 10 ml IVF PRN PRN PRN Reason: Saline Flush Sodium Chloride (Flush - Normal Saline) 10 ml IVF Q12HR [facility] Last Admin: 09/23/18 08:06 Dose: 10 ml Sodium Chloride (Flush - Normal Saline) 10 ml IVF PRN PRN PRN Reason: Saline Flush Zolpidem Tartrate (Ambien) 5 mg PO HSPRN PRN PRN Reason: Insomnia
[2018-09-23] MEDS: Atorvastatin Calcium 20 MG TAB PO SCH (20:42)
[2018-09-24] MEDS: HYDROcodone/Acetaminophen 5/325 mg Tablet PO PRN ×2 (05:31→09:16)
[2018-09-24] MEDS ORDERED: Lisinopril 5 MG TAB PO SCH (09:00)
[2018-09-24] MEDS ORDERED: Metoprolol Tartrate 25 MG TAB PO SCH (09:00)
[2018-09-24] MEDS: HumuLIN 70/30 (300 UNITS/3 ML VIAL) SC SCH ×2 (09:08→12:07)
[2018-09-24] MEDS: glipiZIDE 10 MG TAB PO SCH (09:15)
[2018-09-24] MEDS: metFORMIN 500 MG TAB PO SCH (09:17)
[2018-09-24] MEDS: Potassium Chloride 20 MEQ TAB PO SCH (09:21)
[2018-09-24] MEDS: Furosemide 80 MG TAB PO SCH (09:21)
[2018-09-24] MEDS: Aspirin 325 mg Enteric Coated Tablet PO SCH (09:22)
--- NOTE | 2018-09-24 10:43 | PDOC.PN ---
- Subjective Encounter Start Date: 09/24/18 Encounter Start Time: 07:30 Patient seen and examined. No new complaints. No overnight events - Objective Resuscitation Status - Order Detail: 09/16/18 17:15 Resuscitation Status Routine Co-Sign Provider: Resuscitation Status: FULL: Full Resuscitation MAR Reviewed: Yes Vital Signs & Weight: Vital Signs (12 hours) Temp Pulse Resp BP BP Pulse Ox 09/24/18 09:15 101 H 126/79 09/24/18 08:00 96.7 F L 101 H 16 126/79 99 09/24/18 07:46 105 H 16 97 09/24/18 03:15 97.7 F 92 20 116/74 96 09/24/18 00:26 95 16 95 09/24/18 00:00 18 Weight Weight 262 lb 12.8 oz Most Recent Monitor Data Heart Rate from ECG 88 NIBP 104/79 NIBP BP-Mean 87 Respiration from ECG 15 SpO2 99 I&O: 09/23/18 09/24/18 09/25/18 06:59 06:59 06:59 Intake Total 1200 980 Output Total 1000 870 Balance 200 110 Result Diagrams: 09/21/18 04:35 09/21/18 04:35 Additional Labs: Accuchecks 09/24/18 09/23/18 09/23/18 06:09 20:35 16:53 POC Glucose 138 H 211 H 155 H 09/23/18 11:14 POC Glucose 249 H EKG Reviewed by me: Yes Phys Exam - Physical Examination Constitutional: NAD HEENT: PERRLA, moist MMs, sclera anicteric Neck: no JVD, supple Respiratory: no wheezing, no rales, no rhonchi Cardiovascular: RRR, no significant murmur, no rub Gastrointestinal: soft, non-tender, no distention, positive bowel sounds Musculoskeletal: no edema, pulses present Neurological: non-focal, normal sensation, moves all 4 limbs Lymphatic: no nodes Psychiatric: normal affect, A&O x 3 Skin: no rash, normal turgor Dx/Plan (1) NSTEMI (non-ST elevated myocardial infarction) Code(s): I21.4 - NON-ST ELEVATION (NSTEMI) MYOCARDIAL INFARCTION Status: Acute (2) Diabetes type 2, controlled Code(s): E11.9 - TYPE 2 DIABETES MELLITUS WITHOUT COMPLICATIONS Status: Chronic (3) Dyslipidemia Code(s): E78.5 - HYPERLIPIDEMIA, UNSPECIFIED Status: Chronic (4) H/O leukemia Code(s): Z85.6 - PERSONAL HISTORY OF LEUKEMIA Status: Chronic (5) Morbid obesity with BMI of 40.0-44.9, adult Code(s): E66.01 - MORBID (SEVERE) OBESITY DUE TO EXCESS CALORIES; Z68.41 - BODY MASS INDEX (BMI) 40.0-44.9, ADULT Status: Chronic (6) 3-vessel CAD Status: Acute (7) S/P CABG x 3 Code(s): Z95.1 - PRESENCE OF AORTOCORONARY BYPASS GRAFT Status: Acute - Plan cont current plan of care * medication reviewed as below * symptomatic treatment * see discharge azul. Review of Systems - Review of Systems ENT: negative: Ear Pain, Ear Discharge, Nose Pain, Nose Discharge, Nose Congestion, Mouth Pain, Mouth Swelling, Throat Pain, Throat Swelling, Other Respiratory: negative: Cough, Dry, Shortness of Breath, Hemoptysis, SOB with Excertion, Pleuritic Pain, Sputum, Wheezing Cardiovascular: negative: chest pain, palpitations, orthopnea, paroxysmal nocturnal dyspnea, edema, light headedness, other Gastrointestinal: negative: Nausea, Vomiting, Abdominal Pain, Diarrhea, Constipation, Melena, Hematochezia, Other Genitourinary: negative: Dysuria, Frequency, Incontinence, Hematuria, Retention , Other Musculoskeletal: negative: Neck Pain, Shoulder Pain, Arm Pain, Back Pain, Hand Pain, Leg Pain, Foot Pain, Other - Medications/Allergies Allergies/Adverse Reactions: Allergies Allergy/AdvReac Type Severity Reaction Status Date / Time No Known Drug Allergies Allergy Verified 09/17/18 22:48 Medications: Current Medications Acetaminophen (Tylenol) 650 mg PO Q6H PRN PRN Reason: Headache/Fever Or Mild Pain Last Admin: 09/19/18 11:51 Dose: 650 mg Hydrocodone Bitart/Acetaminophen (Lena 5/325) 1 tab PO Q4H PRN PRN Reason: Moderate Pain (4-6) Last Admin: 09/22/18 12:49 Dose: 1 tab Hydrocodone Bitart/Acetaminophen (Lena 5/325) 2 tab PO Q4H PRN PRN Reason: Severe Pain (7-10) Last Admin: 09/24/18 09:16 Dose: 2 tab Al Hydroxide/Mg Hydroxide (Maalox) 30 ml PO Q4H PRN PRN Reason: Indigestion Albuterol/Ipratropium (Duoneb) 3 ml NEB [id number] PRN PRN Reason: SHORTNESS OF BREATH Albuterol/Ipratropium (Duoneb) 3 ml NEB [id number] [facility] Last Admin: 09/24/18 07:46 Dose: 3 ml Aspirin (Ecotrin) 325 mg PO DAILY [facility] Last Admin: 09/24/18 09:22 Dose: 325 mg Atorvastatin Calcium (Lipitor) 20 mg PO HS [facility] Last Admin: 09/23/18 20:42 Dose: 20 mg Bisacodyl (Dulcolax) 10 mg PO Q12H PRN PRN Reason: Constipation Bisacodyl (Dulcolax) 10 mg DE Q12H PRN PRN Reason: Constipation Dextrose/Water (Dextrose 50%) 25 gm SLOW IVP PRN PRN PRN Reason: PER HYPOGLYCEMIC PROTOCOL Diphenhydramine HCl (Benadryl) 25 mg PO Q6H PRN PRN Reason: Itching & Insomnia or Robby Galo Famotidine (Pepcid) 20 mg PO Q12HR [facility] Last Admin: 09/23/18 20:42 Dose: 20 mg Furosemide (Lasix) 80 mg PO DAILY [facility] Last Admin: 09/24/18 09:21 Dose: 80 mg Glipizide (Glucotrol) 10 mg PO BID [facility] Last Admin: 09/24/18 09:15 Dose: 10 mg Glucagon (Glucagon) 1 mg SC PRN PRN PRN Reason: PER HYPOGLYCEMIC PROTOCOL Guaifenesin/Dextromethorphan (Robitussin Dm) 15 ml PO Q4H PRN PRN Reason: Cough Dextrose/Water (D5w) 1,000 mls @ 0 mls/hr IV INF PRN PRN Reason: PRN HYPOGLYCEMIC PROTOCOL Dextrose/Water (D5w) 1,000 mls @ 0 mls/hr IV .Q0M PRN PRN Reason: Hypoglycemia Insulin Human Isoph/Insulin Regular (Humulin 70/30) 15 units SC [facility] Last Admin: 09/24/18 09:08 Dose: 15 unit Insulin Human Regular (Humulin R) 0 units SC Q4H PRN; Protocol PRN Reason: POST OP SLIDING SCALE Last Admin: 09/23/18 20:43 Dose: 6 unit Lisinopril (Zestril) 5 mg PO DAILY [facility] Last Admin: 09/24/18 09:15 Dose: 5 mg Magnesium Hydroxide (Milk Of Magnesium) 30 ml PO Q12H PRN PRN Reason: Constipation Metformin HCl (Glucophage) 1,000 mg PO BID-[facility] Last Admin: 09/24/18 09:17 Dose: 1,000 mg Metoprolol Tartrate (Lopressor) 37.5 mg PO BID [facility] Last Admin: 09/24/18 09:21 Dose: 37.5 mg Mineral Oil (Fleet Mineral Oil) 133 ml [place] DAILYPRN PRN PRN Reason: Constipation Nitroglycerin (Nitrostat) 0.4 mg SL Q5MIN PRN PRN Reason: Chest Pain Ondansetron HCl (Zofran) 4 mg IVP Q6H PRN PRN Reason: Nausea/Vomiting Last Admin: 09/18/18 12:04 Dose: 4 mg Potassium Chloride (Kcl) 20 meq IVPB PRN PRN PRN Reason: K level </= 4.0 Last Admin: 09/21/18 06:16 Dose: 20 meq Potassium Chloride (K-Dur) 20 meq PO QAM-[facility] Last Admin: 09/24/18 09:21 Dose: 20 meq Promethazine HCl (Phenergan) 6.25 mg IM Q4H PRN PRN Reason: Nausea/Vomiting Sertraline HCl (Zoloft) 25 mg PO DAILY [facility] Last Admin: 09/24/18 09:21 Dose: 25 mg Sodium Chloride (Flush - Normal Saline) 10 ml IVF PRN PRN PRN Reason: Saline Flush Sodium Chloride (Flush - Normal Saline) 10 ml IVF Q12HR [facility] Last Admin: 09/24/18 09:22 Dose: 10 ml Sodium Chloride (Flush - Normal Saline) 10 ml IVF PRN PRN PRN Reason: Saline Flush Zolpidem Tartrate (Ambien) 5 mg PO HSPRN PRN PRN Reason: Insomnia
--- NOTE | 2018-09-24 11:40 | DIS ---
DATE OF ADMISSION: 09/16/2018 DATE OF DISCHARGE: 09/24/2018 PRIMARY CARE PHYSICIAN: Joyce Tracy MD DISCHARGE DISPOSITION: Home. PRIMARY DISCHARGE DIAGNOSES: 1. [id number] myocardial infarction. 2. 3-vessel coronary artery disease. 3. Status post coronary artery bypass graft x3. SECONDARY DISCHARGE DIAGNOSES: 1. Morbid obesity. 2. Diabetes type 2. 3. Hypertension. 4. Dyslipidemia. 5. History of leukemia. PRIMARY PROCEDURE/OPERATION: Cardiac catheterization was performed by Dr. Troy, and found with 3-vessel coronary artery disease and recommended coronary artery bypass graft. Coronary artery bypass graft x3 done by Dr. Landa. Central line was placed. RADIOLOGICAL INVESTIGATION: Echocardiography showed normal EF. The patient had several chest x-ray. SIGNIFICANT LABORATORY DATA: WBC 10.5, hemoglobin 9.7, platelet 266. INR 1.1. Sodium 137, creatinine 0.45, calcium 8.0. DISCHARGE MEDICATIONS: 1. Aspirin 325 mg p.o. daily. 2. Lipitor 20 mg p.o. at bedtime. 3. Lasix 40 mg p.o. daily. 4. Glipizide 10 mg p.o. b.i.d. 5. Humulin 70/30 15 units subcu a.c. b.i.d. 6. Lisinopril 5 mg p.o. daily. 7. Metformin 1000 mg p.o. b.i.d. 8. Metoprolol 37.5 mg p.o. b.i.d. 9. Potassium chloride 20 mEq p.o. daily. 10. Zoloft 25 mg p.o. daily. CONTRAINDICATION: None. CODE STATUS: Full code. INPATIENT ORGANIZATIONAL PSYCHOLOGIST: Dr. Troy was consulted while in the hospital. Dr. Landa was consulted while in hospital. Pulmonary group was following while in hospital. TEST RESULTS PENDING ON DISCHARGE: None. ALLERGIES: NO KNOWN DRUG ALLERGIES. DISCHARGE PLAN: Posthospital, the patient will follow up with cardiac rehab on October 07, 2018, at 12:45 p.m. The patient will follow up with primary care physician. The patient has appointment with Dr. Landa and Dr. Alcantara as instructed. HOSPITAL COURSE: A 42-year-old female, who was admitted by DENISE Watters, please see his H and P for further details. The patient was presented to emergency room with acute onset of chest pain and shortness of breath. She was found with [id number] MA. She had significantly elevated troponin. The patient was consulted by Cardiology. The patient was admitted in ICU. The patient had cardiac cath and found with 3-vessel CAD. Cardiology recommended CABG. Dr. Landa was consulted and Dr. Landa did three vessel CABG in the next day. Postoperatively, the patient remained in ICU. She had chest tube, which was removed. The patient had central line placement, which was removed on the day of discharge. The patient was treated after surgery with post CABG protocol treatment and she did very well. While in hospital, her diabetes was not well controlled and that is why we increased dose of above-mentioned medication and started on insulin. The patient's blood pressure medication was adjusted as above. The patient is doing very well. She is ambulatory, tolerating p.o. well. All new medication prescription given and with the help of resource team, medication assistance was provided. The patient was seen and examined at bedside today. Please see my progress note from today for further detail. Job ID: [id number]
[2018-09-24] MEDS: Insulin Regular 300 UNITS/3 ML VIAL SC PRN (12:05)
[2018-09-24] MEDS: Famotidine 20 MG TAB PO SCH (12:19)
[2018-09-24 15:01] VITALS: TEMP 98.3
[2018-09-24 15:55] VITALS: BP 138/79
== END 2018-09-24 15:02 | disposition home or self-care (01) | DRG 234 ==
LOC: ERS 11:42 → OBSVTOIN 16:28 → ERHOLD 16:28 → CCU 16:28 → SURG A 20:43 → CCU 21:49 → 2NO 09-21 10:33
PROVIDERS: ADMIT Family Medicine; ATTEND Family Medicine
PROC: 4A023N7 Measurement of Cardiac Sampling and Pressure, Left Heart, Percutaneous Approach (ICD-10-PCS; 2018-09-16)
PROC: B2111ZZ Fluoroscopy of Multiple Coronary Arteries using Low Osmolar Contrast (ICD-10-PCS; 2018-09-16)
PROC: B2151ZZ Fluoroscopy of Left Heart using Low Osmolar Contrast (ICD-10-PCS; 2018-09-16)
PROC: 02100Z9 Bypass Coronary Artery, One Artery from Left Internal Mammary, Open Approach (ICD-10-PCS; principal; 2018-09-18)
PROC: 021109W Bypass Coronary Artery, Two Arteries from Aorta with Autologous Venous Tissue, Open Approach (ICD-10-PCS; 2018-09-18)
PROC: 06BQ4ZZ Excision of Left Saphenous Vein, Percutaneous Endoscopic Approach (ICD-10-PCS; 2018-09-18)
PROC: 5A1221Z Performance of Cardiac Output, Continuous (ICD-10-PCS; 2018-09-18)
DX: I21.4 Non-ST elevation (NSTEMI) myocardial infarction (principal); Z68.41 Body mass index [BMI] 40.0-44.9, adult; C95.90 Leukemia, unspecified not having achieved remission; E66.01 Morbid (severe) obesity due to excess calories; I95.9 Hypotension, unspecified; I25.10 Atherosclerotic heart disease of native coronary artery without angina pectoris; I10 Essential (primary) hypertension; E11.9 Type 2 diabetes mellitus without complications; E78.5 Hyperlipidemia, unspecified; Z79.84 Long term (current) use of oral hypoglycemic drugs; Z79.899 Other long term (current) drug therapy; Z95.5 Presence of coronary angioplasty implant and graft
CPT/HCPCS: 36415; 36416; 71045; 80048; 80053; 80061; 82553; 82805; 83036; 84484; 85025; 85610; 85730; 86850; 86900; 86901; 93005; 93010; 93306; 93458; 93798; 94002; 94150; 94640; 96374; 99152; 99153; C1769; C9113; J0360; J0670; J1100; J1265; J1644; J1650; J1815; J1825; J1885; J1940; J2001; J2150; J2250; J2270; J2405; J2440; J2704; J2720; J3010; J3370; J3475; J3480; J7050; J7620; P9045; S0017; S0028

== ENCOUNTER 2022-06-28 10:17 | Inpatient (IN) | payer MEDICAID, SELFPAY ==
[2022-06-28] MEDS ORDERED: Cefepime 2 GM VIAL ONE (11:02)
[2022-06-28] MEDS ORDERED: Ondansetron PF 4 MG/2 ML Vial ONE (11:02)
[2022-06-28] MEDS ORDERED: Morphine 4 MG/ML VIAL ONE (11:02)
[2022-06-28 11:12] LABS: #Basophils 0.1 thou/uL (0.0-0.2); #Eosinphils 0.2 thou/uL (0.0-0.7); #Lymphocytes 2.9 thou/uL (1.20-3.40); #Monocytes 0.9 thou/uL (0.11-0.59); #Neutrophils 9.8 thou/uL (1.40-6.50); %Basophils 0.5 % (0.0-1.0); %Eosinophils 1.1 % (0.0-10.0); %Monocytes 6.2 % (0.0-10.0); %Neutrophils 71.2 % (42.0-75.0); Hemoglobin 13.9 g/dL (12.0-16.0); Mean Corpuscular HGB CONC 32.3 g/dL (32.0-36.0); Mean Corpuscular Hemoglobin 29.9 pg (27.0-31.0); Mean Corpuscular Volume 92.8 fl (78.0-98.0); Mean Platelet Volume 9.8 fL (7.4-10.4); Platelet Count 344 10x3/uL (130-400); RBC Distribution Width 13.1 % (11.5-14.5); Red Blood Cell (RBC) Count 4.63 mill/uL (4.20-5.40); White Blood Cell (WBC) Count 13.7 10x3/uL (4.8-10.8)
[2022-06-28 11:19] LABS: INR-International Normal Ratio 0.9; PTT 30.2 sec (22.9-36.1); Prothrombin Time 12.3 sec (12.0-14.7)
[2022-06-28 11:29] LABS: ALT (SGPT) 63 U/L (8-55); AST (SGOT) 35 U/L (5-34); Albumin 4.3 g/dL (3.5-5.0); Alkaline Phosphatase 249 U/L (40-110); Anion Gap 14 mmol/L (10-20); BUN (Urea Nitrogen) 14 mg/dL (7.0-18.7); Calc. Creatinine Clearance 0 mL/min (70-130); Calcium 9.6 mg/dL (7.8-10.44); Carbon Dioxide 21 mmol/L (22-29); Chloride 102 mmol/L (98-107); Estimated GFR 102; Globulin 4.3 g/dL (2.4-3.5); Glucose 187 mg/dL (70-105); Potassium 4.3 mmol/L (3.5-5.1); Protein, Total 8.6 g/dL (6.0-8.3); Sodium 133 mmol/L (136-145)
[2022-06-28 11:32] LABS: BHCG - Serum Negative (NEGATIVE); Pregs Control Background? CLEAR/WHITE (CLR/WHITE); Pregs Control Bar Appear? YES (CONTROL BAR)
[2022-06-28] MEDS ORDERED: Vancomycin 1.5 GRAM/300 ML BAG 1.5 GM in Premix Bag 1 BAG IVPB SCH (12:30)
[2022-06-28] MEDS ORDERED: Dextrose 50% Abboject 50 ML SYRINGE SLOW IVP PRN (13:14)
[2022-06-28] MEDS ORDERED: HumaLOG 300 UNITS/3 ML VIAL SC PRN (13:14)
[2022-06-28] MEDS ORDERED: Dextrose 5% in Water 1,000 ML IV PRN (13:14)
[2022-06-28 14:27] LABS: Lactic Acid 1.6 mmol/L (0.5-2.2)
[2022-06-28] MEDS ORDERED: Lactated Ringer's 1,000 ML IV SCH ×2 (17:15→18:45)
[2022-06-28 18:03] VITALS: BMI 35.9
[2022-06-28] MEDS: Ondansetron PF 4 MG/2 ML Vial IVP PRN (18:05)
[2022-06-28] MEDS ORDERED: NOREPINEPHRINE 8 MG/250 ML-D5W 250 ML IVPB SCH (18:45)
[2022-06-28] MEDS ORDERED: Ketorolac Tromethamine 30 MG/ML VIAL IVP SCH (20:30)
[2022-06-28] MEDS: Gabapentin 300 MG CAP PO SCH (20:37)
[2022-06-28] MEDS: Atorvastatin Calcium 40 MG TAB PO SCH (20:37)
[2022-06-29] MEDS: Vancomycin 1.5 GRAM/300 ML BAG 1.5 GM in Premix Bag 1 BAG IVPB SCH ×2 (01:10→13:21)
[2022-06-29] MEDS: Acetaminophen 325 MG TAB PO PRN ×2 (01:11→11:23)
[2022-06-29] MEDS ORDERED: Lactated Ringer's 1,000 ML IV SCH (02:00)
[2022-06-29] MEDS ORDERED: traMADol HCl 50 MG TAB PO SCH (02:15)
[2022-06-29 05:03] LABS: Anion Gap 13 mmol/L (10-20); BUN (Urea Nitrogen) 8 mg/dL (7.0-18.7); Calc. Creatinine Clearance 220 mL/min (70-130); Calcium 8.4 mg/dL (7.8-10.44); Carbon Dioxide 19 mmol/L (22-29); Chloride 108 mmol/L (98-107); Estimated GFR 117; Glucose 197 mg/dL (70-105); Sodium 136 mmol/L (136-145)
[2022-06-29 05:09] LABS: #Eosinphils 0.1 thou/uL (0.0-0.7); #Lymphocytes 2.5 thou/uL (1.20-3.40); #Monocytes 1.1 thou/uL (0.11-0.59); #Neutrophils 8.3 thou/uL (1.40-6.50); %Basophils 0.2 % (0.0-1.0); %Eosinophils 0.7 % (0.0-10.0); %Lymphocytes 20.8 % (21.0-51.0); %Monocytes 9.4 % (0.0-10.0); Mean Corpuscular HGB CONC 32.8 g/dL (32.0-36.0); Mean Corpuscular Hemoglobin 30.9 pg (27.0-31.0); Mean Corpuscular Volume 94.3 fl (78.0-98.0); Mean Platelet Volume 10.2 fL (7.4-10.4); Platelet Count 283 10x3/uL (130-400); Red Blood Cell (RBC) Count 3.24 mill/uL (4.20-5.40)
[2022-06-29] MEDS: Gabapentin 300 MG CAP PO SCH ×2 (09:01→21:39)
[2022-06-29] MEDS: cefTRIAXone\\ROCEPHIN 1 GM in Sodium Chloride 0.9% 100 ML IVPB SCH (09:02)
[2022-06-29] MEDS: Aspirin 325 mg Enteric Coated Tablet PO SCH (09:02)
[2022-06-29] MEDS ORDERED: Dextrose 5% in Water 1,000 ML IV PRN (09:08)
[2022-06-29] MEDS ORDERED: Dextrose 50% Abboject 50 ML SYRINGE SLOW IVP PRN (09:08)
[2022-06-29] MEDS ORDERED: Insulin Glargine 30 UNITS/0.3 ML VIAL SC SCH (09:15)
[2022-06-29] MEDS ORDERED: Metoprolol Tartrate 25 MG TAB PO SCH (09:30)
[2022-06-29] MEDS ORDERED: Iopamidol-370 76% 500 ML 1 ML ONE (10:40)
[2022-06-29] MEDS: HumaLOG 300 UNITS/3 ML VIAL SC PRN ×2 (11:27→21:42)
[2022-06-29 12:11] LABS: Troponin I 0.399 ng/mL (< 0.028)
[2022-06-29 16:49] LABS: Troponin I 0.413 ng/mL (< 0.028)
[2022-06-29 19:26] LABS: Troponin I 0.476 ng/mL (< 0.028)
[2022-06-29] MEDS: Atorvastatin Calcium 40 MG TAB PO SCH (21:39)
[2022-06-29] MEDS: Insulin Glargine 30 UNITS/0.3 ML VIAL SC SCH (21:40)
[2022-06-29] MEDS: Metoprolol Tartrate 25 MG TAB PO SCH (21:49)
[2022-06-30 01:04] LABS: Vancomycin, Trough 4.6 ug/mL
[2022-06-30 01:16] LABS: Critical Call Chem Troponin I RESULT DECREASING; Troponin I 0.461 ng/mL (< 0.028)
[2022-06-30] MEDS: Vancomycin 1.5 GRAM/300 ML BAG 1.5 GM in Premix Bag 1 BAG IVPB SCH ×4 (02:11→17:33)
[2022-06-30] MEDS ORDERED: Lactated Ringer's 1,000 ML IV SCH (04:00)
[2022-06-30 06:42] LABS: #Basophils 0.1 thou/uL (0.0-0.2); #Eosinphils 0.2 thou/uL (0.0-0.7); #Lymphocytes 2.3 thou/uL (1.20-3.40); #Neutrophils 9.7 thou/uL (1.40-6.50); %Basophils 0.4 % (0.0-1.0); %Eosinophils 1.4 % (0.0-10.0); %Lymphocytes 17.5 % (21.0-51.0); %Monocytes 7.3 % (0.0-10.0); %Neutrophils 73.4 % (42.0-75.0); Hemoglobin 11.3 g/dL (12.0-16.0); Mean Corpuscular HGB CONC 32.3 g/dL (32.0-36.0); Mean Corpuscular Hemoglobin 31.1 pg (27.0-31.0); Mean Corpuscular Volume 96.2 fl (78.0-98.0); Mean Platelet Volume 9.6 fL (7.4-10.4); Platelet Count 340 10x3/uL (130-400); RBC Distribution Width 13.1 % (11.5-14.5); Red Blood Cell (RBC) Count 3.63 mill/uL (4.20-5.40); White Blood Cell (WBC) Count 13.2 10x3/uL (4.8-10.8)
[2022-06-30] MEDS ORDERED: Lidocaine 1% (PF) 30 ML VIAL ONE (07:16)
[2022-06-30] MEDS ORDERED: Heparin 10,000 UNITS/ 10 ML VIAL ONE (07:16)
[2022-06-30] MEDS: Aspirin 325 mg Enteric Coated Tablet PO SCH (09:37)
[2022-06-30] MEDS: cefTRIAXone\\ROCEPHIN 1 GM in Sodium Chloride 0.9% 100 ML IVPB SCH (09:37)
[2022-06-30] MEDS: Gabapentin 300 MG CAP PO SCH ×2 (09:37→19:39)
[2022-06-30] MEDS: Insulin Glargine 30 UNITS/0.3 ML VIAL SC SCH ×2 (09:45→19:39)
[2022-06-30] MEDS: FENTANYL 50 MCG/ML 1 ML VIAL SLOW IVP PRN ×3 (09:45→20:14)
[2022-06-30] MEDS: Metoprolol Tartrate 25 MG TAB PO SCH ×2 (09:45→21:04)
[2022-06-30 11:35] LABS: Albumin 3.3 g/dL (3.5-5.0); Calcium 8.8 mg/dL (7.8-10.44); Phosphorus 2.1 mg/dL (2.3-4.7)
[2022-06-30] MEDS ORDERED: Insulin Glargine 30 UNITS/0.3 ML VIAL SC SCH (11:45)
[2022-06-30] MEDS: HumaLOG 300 UNITS/3 ML VIAL SC PRN ×3 (12:11→20:14)
[2022-06-30 13:09] LABS: Glucose 284 mg/dL (70-105)
[2022-06-30 13:11] LABS: Anion Gap 14 mmol/L (10-20); Carbon Dioxide 15 mmol/L (22-29)
[2022-06-30 13:13] LABS: Calc. Creatinine Clearance 191 mL/min (70-130); Estimated GFR 113
[2022-06-30 13:14] LABS: BUN (Urea Nitrogen) 4 mg/dL (7.0-18.7)
[2022-06-30 13:24] LABS: Chloride 110 mmol/L (98-107); Potassium 4.3 mmol/L (3.5-5.1); Sodium 135 mmol/L (136-145)
[2022-06-30] MEDS ORDERED: Iopamidol 370 76% 50 ML VIAL FS ONE (14:27)
[2022-06-30] MEDS: traMADol HCl 50 MG TAB PO PRN (19:38)
[2022-06-30] MEDS: Atorvastatin Calcium 40 MG TAB PO SCH (19:39)
[2022-07-01 01:45] LABS: Vancomycin, Trough 9.6 ug/mL
[2022-07-01] MEDS: Vancomycin 1.5 GRAM/300 ML BAG 1.5 GM in Premix Bag 1 BAG IVPB SCH (03:35)
[2022-07-01] MEDS: VANCOMYCIN 2 GRAM/500 ML BAG 2 GM in Premix Bag 1 BAG IVPB SCH ×3 (03:54→22:02)
[2022-07-01 04:16] LABS: #Eosinphils 0.2 thou/uL (0.0-0.7); #Lymphocytes 2.6 thou/uL (1.20-3.40); #Neutrophils 7.3 thou/uL (1.40-6.50); %Basophils 0.3 % (0.0-1.0); %Eosinophils 2.2 % (0.0-10.0); %Monocytes 8.9 % (0.0-10.0); %Neutrophils 65.6 % (42.0-75.0); Hemoglobin 10.1 g/dL (12.0-16.0); Mean Corpuscular HGB CONC 32.3 g/dL (32.0-36.0); Mean Corpuscular Hemoglobin 31.1 pg (27.0-31.0); Mean Corpuscular Volume 96.3 fl (78.0-98.0); Platelet Count 281 10x3/uL (130-400); RBC Distribution Width 12.9 % (11.5-14.5); Red Blood Cell (RBC) Count 3.26 mill/uL (4.20-5.40); White Blood Cell (WBC) Count 11.1 10x3/uL (4.8-10.8)
[2022-07-01 04:42] LABS: Anion Gap 12 mmol/L (10-20); BUN (Urea Nitrogen) 5 mg/dL (7.0-18.7); Calc. Creatinine Clearance 229 mL/min (70-130); Calcium 8.8 mg/dL (7.8-10.44); Carbon Dioxide 18 mmol/L (22-29); Chloride 109 mmol/L (98-107); Estimated GFR 119; Glucose 159 mg/dL (70-105); Potassium 3.5 mmol/L (3.5-5.1); Sodium 135 mmol/L (136-145)
[2022-07-01] MEDS: traMADol HCl 50 MG TAB PO PRN ×3 (06:15→22:03)
[2022-07-01 09:00] LABS: Magnesium 1.5 mg/dL (1.6-2.6); Phosphorus 2.1 mg/dL (2.3-4.7)
[2022-07-01] MEDS: Gabapentin 300 MG CAP PO SCH ×2 (10:09→22:03)
[2022-07-01] MEDS: Insulin Glargine 30 UNITS/0.3 ML VIAL SC SCH ×2 (10:09→22:02)
[2022-07-01] MEDS: Aspirin 325 mg Enteric Coated Tablet PO SCH (10:10)
[2022-07-01] MEDS: Metoprolol Tartrate 25 MG TAB PO SCH ×2 (10:10→22:04)
[2022-07-01] MEDS: cefTRIAXone\\ROCEPHIN 1 GM in Sodium Chloride 0.9% 100 ML IVPB SCH (10:10)
[2022-07-01] MEDS: FENTANYL 50 MCG/ML 1 ML VIAL SLOW IVP PRN ×2 (10:17→18:36)
[2022-07-01] MEDS: HumaLOG 300 UNITS/3 ML VIAL SC PRN (22:04)
[2022-07-01] MEDS: Atorvastatin Calcium 40 MG TAB PO SCH (22:04)
[2022-07-02] MEDS: FENTANYL 50 MCG/ML 1 ML VIAL SLOW IVP PRN ×2 (01:23→21:09)
[2022-07-02 04:19] LABS: #Eosinphils 0.2 thou/uL (0.0-0.7); #Lymphocytes 2.5 thou/uL (1.20-3.40); #Monocytes 0.9 thou/uL (0.11-0.59); #Neutrophils 6.7 thou/uL (1.40-6.50); %Basophils 0.3 % (0.0-1.0); %Eosinophils 1.7 % (0.0-10.0); %Lymphocytes 23.9 % (21.0-51.0); %Monocytes 9.1 % (0.0-10.0); Hemoglobin 9.2 g/dL (12.0-16.0); Mean Corpuscular HGB CONC 32.8 g/dL (32.0-36.0); Mean Corpuscular Hemoglobin 30.2 pg (27.0-31.0); Mean Corpuscular Volume 92.1 fl (78.0-98.0); Mean Platelet Volume 9.4 fL (7.4-10.4); Platelet Count 303 10x3/uL (130-400); RBC Distribution Width 12.7 % (11.5-14.5); Red Blood Cell (RBC) Count 3.04 mill/uL (4.20-5.40); White Blood Cell (WBC) Count 10.3 10x3/uL (4.8-10.8)
[2022-07-02 04:31] LABS: Phosphorus 2.2 mg/dL (2.3-4.7)
[2022-07-02 04:34] LABS: Anion Gap 10 mmol/L (10-20); BUN (Urea Nitrogen) 4 mg/dL (7.0-18.7); Calc. Creatinine Clearance 225 mL/min (70-130); Calcium 8.4 mg/dL (7.8-10.44); Carbon Dioxide 19 mmol/L (22-29); Chloride 110 mmol/L (98-107); Estimated GFR 118; Glucose 129 mg/dL (70-105); Magnesium 1.8 mg/dL (1.6-2.6); Potassium 3.2 mmol/L (3.5-5.1); Sodium 136 mmol/L (136-145)
[2022-07-02] MEDS: VANCOMYCIN 2 GRAM/500 ML BAG 2 GM in Premix Bag 1 BAG IVPB SCH (04:52)
[2022-07-02] MEDS: VANCOMYCIN 1.75 GM/500 ML BAG 1.75 GM in Premix Bag 1 BAG IVPB SCH ×3 (06:45→21:42)
[2022-07-02] MEDS: Metoprolol Tartrate 25 MG TAB PO SCH ×3 (08:35→21:12)
[2022-07-02] MEDS: Gabapentin 300 MG CAP PO SCH (08:39)
[2022-07-02] MEDS: Aspirin 325 mg Enteric Coated Tablet PO SCH (08:39)
[2022-07-02] MEDS: Insulin Glargine 30 UNITS/0.3 ML VIAL SC SCH ×2 (08:39→21:11)
[2022-07-02] MEDS: cefTRIAXone\\ROCEPHIN 1 GM in Sodium Chloride 0.9% 100 ML IVPB SCH (08:39)
[2022-07-02] MEDS ORDERED: Electrolyte Replacement Protocol FS PRN (08:45)
[2022-07-02] MEDS ORDERED: Electrolyte Replacement Protocol 1 EACH FS SCH (08:45)
[2022-07-02] MEDS ORDERED: Potassium Chloride 20 MEQ TAB PO SCH (09:00)
[2022-07-02] MEDS ORDERED: Magnesium 2 GM/50 ML(in water) 2 GM in Premix Bag 1 BAG IVPB SCH (09:00)
[2022-07-02] MEDS ORDERED: NILOTINIB 150 MG PO SCH (09:15)
[2022-07-02] MEDS: HumaLOG 300 UNITS/3 ML VIAL SC PRN ×2 (11:58→17:16)
[2022-07-02 13:19] LABS: Potassium 3.8 mmol/L (3.5-5.1)
[2022-07-02] MEDS ORDERED: Gabapentin 400 MG CAP PO SCH (21:00)
[2022-07-02] MEDS: traMADol HCl 50 MG TAB PO PRN (21:09)
[2022-07-02] MEDS: Cyanocobalamin (Vitamin B-12) 1,000 MCG TAB PO SCH (21:10)
[2022-07-02] MEDS: Multivit, Therapeutic 1 TAB PO SCH (21:10)
[2022-07-02] MEDS: Atorvastatin Calcium 40 MG TAB PO SCH (21:10)
[2022-07-02] MEDS: Nilotinib Hcl [Tasigna] 150 MG Capsule PO SCH (21:12)
[2022-07-03 05:26] LABS: #Eosinphils 0.3 thou/uL (0.0-0.7); #Lymphocytes 2.2 thou/uL (1.20-3.40); #Monocytes 1.1 thou/uL (0.11-0.59); #Neutrophils 7.1 thou/uL (1.40-6.50); %Basophils 0.4 % (0.0-1.0); %Eosinophils 2.7 % (0.0-10.0); %Lymphocytes 20.5 % (21.0-51.0); %Monocytes 9.9 % (0.0-10.0); %Neutrophils 66.5 % (42.0-75.0); Hemoglobin 9.3 g/dL (12.0-16.0); Mean Corpuscular HGB CONC 33.5 g/dL (32.0-36.0); Mean Corpuscular Hemoglobin 30.8 pg (27.0-31.0); Mean Corpuscular Volume 91.8 fl (78.0-98.0); Mean Platelet Volume 9.5 fL (7.4-10.4); Platelet Count 310 10x3/uL (130-400); RBC Distribution Width 12.9 % (11.5-14.5); Red Blood Cell (RBC) Count 3.03 mill/uL (4.20-5.40); White Blood Cell (WBC) Count 10.7 10x3/uL (4.8-10.8)
[2022-07-03 05:47] LABS: Phosphorus 2.1 mg/dL (2.3-4.7); Vancomycin, Trough 18.7 ug/mL
[2022-07-03 05:49] LABS: Anion Gap 11 mmol/L (10-20); BUN (Urea Nitrogen) Less than 4 mg/dL (7.0-18.7); Calc. Creatinine Clearance 245 mL/min (70-130); Calcium 8.6 mg/dL (7.8-10.44); Carbon Dioxide 19 mmol/L (22-29); Chloride 110 mmol/L (98-107); Estimated GFR 119; Glucose 109 mg/dL (70-105); Potassium 3.4 mmol/L (3.5-5.1); Sodium 137 mmol/L (136-145)
[2022-07-03] MEDS: VANCOMYCIN 1.75 GM/500 ML BAG 1.75 GM in Premix Bag 1 BAG IVPB SCH ×3 (06:12→21:47)
[2022-07-03] MEDS ORDERED: Potassium Bicarbonate/Cit Ac 20 MEQ TAB PO SCH (08:00)
[2022-07-03] MEDS ORDERED: Potassium Chloride 20 MEQ TAB PO SCH (08:00)
[2022-07-03] MEDS: Metoprolol Tartrate 25 MG TAB PO SCH ×2 (09:36→20:28)
[2022-07-03] MEDS: PHOS-NAK 1 PKT PACK PO SCH ×2 (09:36→17:59)
[2022-07-03] MEDS: Aspirin 325 mg Enteric Coated Tablet PO SCH (09:37)
[2022-07-03] MEDS: cefTRIAXone\\ROCEPHIN 1 GM in Sodium Chloride 0.9% 100 ML IVPB SCH (09:37)
[2022-07-03] MEDS: Gabapentin 300 MG CAP PO SCH ×3 (09:37→20:23)
[2022-07-03] MEDS: Insulin Glargine 30 UNITS/0.3 ML VIAL SC SCH ×2 (09:48→20:24)
[2022-07-03] MEDS: Nilotinib Hcl [Tasigna] 150 MG Capsule PO SCH ×2 (09:49→20:28)
[2022-07-03] MEDS: HumaLOG 300 UNITS/3 ML VIAL SC PRN (10:32)
[2022-07-03 11:57] VITALS: BP 93/69
[2022-07-03 14:46] LABS: Potassium 4.5 mmol/L (3.5-5.1)
[2022-07-03] MEDS: FENTANYL 50 MCG/ML 1 ML VIAL SLOW IVP PRN (18:03)
[2022-07-03] MEDS: traMADol HCl 50 MG TAB PO PRN ×2 (19:08→23:07)
[2022-07-03] MEDS: Multivit, Therapeutic 1 TAB PO SCH (20:23)
[2022-07-03] MEDS: Atorvastatin Calcium 40 MG TAB PO SCH (20:23)
[2022-07-03] MEDS: Cyanocobalamin (Vitamin B-12) 1,000 MCG TAB PO SCH (20:23)
[2022-07-04 06:22] LABS: #Eosinphils 0.2 thou/uL (0.0-0.7); #Lymphocytes 2.5 thou/uL (1.20-3.40); #Monocytes 1.1 thou/uL (0.11-0.59); %Basophils 0.3 % (0.0-1.0); %Eosinophils 1.8 % (0.0-10.0); %Monocytes 9.5 % (0.0-10.0); %Neutrophils 67.5 % (42.0-75.0); Hemoglobin 9.7 g/dL (12.0-16.0); Mean Corpuscular HGB CONC 30.3 g/dL (32.0-36.0); Mean Corpuscular Hemoglobin 29.9 pg (27.0-31.0); Mean Corpuscular Volume 98.8 fl (78.0-98.0); Mean Platelet Volume 9.6 fL (7.4-10.4); Platelet Count 353 10x3/uL (130-400); RBC Distribution Width 13.4 % (11.5-14.5); Red Blood Cell (RBC) Count 3.24 mill/uL (4.20-5.40); White Blood Cell (WBC) Count 11.8 10x3/uL (4.8-10.8)
[2022-07-04 06:40] LABS: Anion Gap 12 mmol/L (10-20); BUN (Urea Nitrogen) 4 mg/dL (7.0-18.7); Calc. Creatinine Clearance 245 mL/min (70-130); Calcium 8.4 mg/dL (7.8-10.44); Carbon Dioxide 18 mmol/L (22-29); Chloride 109 mmol/L (98-107); Estimated GFR 119; Glucose 87 mg/dL (70-105); Potassium 3.2 mmol/L (3.5-5.1); Sodium 136 mmol/L (136-145)
[2022-07-04 06:41] LABS: Magnesium 1.7 mg/dL (1.6-2.6)
[2022-07-04] MEDS ORDERED: Magnesium 2 GM/50 ML(in water) 2 GM in Premix Bag 1 BAG IVPB SCH (08:00)
[2022-07-04] MEDS ORDERED: Potassium Chloride 20 MEQ TAB PO SCH (08:00)
[2022-07-04] MEDS: VANCOMYCIN 1.75 GM/500 ML BAG 1.75 GM in Premix Bag 1 BAG IVPB SCH ×3 (08:44→21:34)
[2022-07-04] MEDS: cefTRIAXone\\ROCEPHIN 1 GM in Sodium Chloride 0.9% 100 ML IVPB SCH (08:45)
[2022-07-04] MEDS: Insulin Glargine 30 UNITS/0.3 ML VIAL SC SCH ×2 (08:45→20:37)
[2022-07-04] MEDS: PHOS-NAK 1 PKT PACK PO SCH ×2 (08:46→15:52)
[2022-07-04] MEDS: Gabapentin 300 MG CAP PO SCH ×3 (08:46→20:26)
[2022-07-04] MEDS: Metoprolol Tartrate 25 MG TAB PO SCH ×2 (08:46→20:26)
[2022-07-04] MEDS: Aspirin 325 mg Enteric Coated Tablet PO SCH (08:47)
[2022-07-04] MEDS: Nilotinib Hcl [Tasigna] 150 MG Capsule PO SCH ×2 (08:47→20:37)
[2022-07-04 13:41] LABS: Potassium 3.9 mmol/L (3.5-5.1)
[2022-07-04] MEDS: Cyanocobalamin (Vitamin B-12) 1,000 MCG TAB PO SCH (20:26)
[2022-07-04] MEDS: Atorvastatin Calcium 40 MG TAB PO SCH (20:26)
[2022-07-04] MEDS: Multivit, Therapeutic 1 TAB PO SCH (20:26)
[2022-07-04] MEDS: traMADol HCl 50 MG TAB PO PRN (20:29)
[2022-07-04] MEDS: FENTANYL 50 MCG/ML 1 ML VIAL SLOW IVP PRN (20:35)
[2022-07-05] MEDS: traMADol HCl 50 MG TAB PO PRN ×3 (00:33→13:03)
[2022-07-05 05:30] LABS: #Eosinphils 0.2 thou/uL (0.0-0.7); #Lymphocytes 2.4 thou/uL (1.20-3.40); #Monocytes 0.9 thou/uL (0.11-0.59); #Neutrophils 7.9 thou/uL (1.40-6.50); %Basophils 0.1 % (0.0-1.0); %Eosinophils 1.9 % (0.0-10.0); %Monocytes 7.4 % (0.0-10.0); %Neutrophils 69.6 % (42.0-75.0); Hemoglobin 9.4 g/dL (12.0-16.0); Mean Corpuscular HGB CONC 33.3 g/dL (32.0-36.0); Mean Corpuscular Hemoglobin 30.3 pg (27.0-31.0); Mean Corpuscular Volume 91.1 fl (78.0-98.0); Mean Platelet Volume 9.2 fL (7.4-10.4); Platelet Count 368 10x3/uL (130-400); RBC Distribution Width 13.2 % (11.5-14.5); Red Blood Cell (RBC) Count 3.11 mill/uL (4.20-5.40); White Blood Cell (WBC) Count 11.4 10x3/uL (4.8-10.8)
[2022-07-05 05:48] LABS: Vancomycin, Trough 18.7 ug/mL
[2022-07-05 05:49] LABS: Anion Gap 10 mmol/L (10-20); BUN (Urea Nitrogen) 5 mg/dL (7.0-18.7); Calc. Creatinine Clearance 255 mL/min (70-130); Calcium 8.5 mg/dL (7.8-10.44); Carbon Dioxide 23 mmol/L (22-29); Chloride 109 mmol/L (98-107); Estimated GFR 120; Glucose 98 mg/dL (70-105); Phosphorus 2.2 mg/dL (2.3-4.7); Potassium 3.6 mmol/L (3.5-5.1); Sodium 138 mmol/L (136-145)
[2022-07-05] MEDS: VANCOMYCIN 1.75 GM/500 ML BAG 1.75 GM in Premix Bag 1 BAG IVPB SCH ×3 (06:42→20:50)
[2022-07-05] MEDS ORDERED: Magnesium 2 GM/50 ML(in water) 2 GM in Premix Bag 1 BAG IVPB SCH (08:00)
[2022-07-05] MEDS ORDERED: Potassium Chloride 20 MEQ TAB PO SCH (09:00)
[2022-07-05] MEDS: Aspirin 325 mg Enteric Coated Tablet PO SCH (09:59)
[2022-07-05] MEDS: cefTRIAXone\\ROCEPHIN 1 GM in Sodium Chloride 0.9% 100 ML IVPB SCH (09:59)
[2022-07-05] MEDS: Gabapentin 300 MG CAP PO SCH ×3 (09:59→20:25)
[2022-07-05] MEDS: Metoprolol Tartrate 25 MG TAB PO SCH ×2 (09:59→20:26)
[2022-07-05] MEDS: Furosemide 20 MG TAB PO SCH ×2 (09:59→13:01)
[2022-07-05] MEDS: Insulin Glargine 30 UNITS/0.3 ML VIAL SC SCH ×2 (10:00→20:26)
[2022-07-05] MEDS: Nilotinib Hcl [Tasigna] 150 MG Capsule PO SCH ×2 (10:11→20:27)
[2022-07-05] MEDS: FENTANYL 50 MCG/ML 1 ML VIAL SLOW IVP PRN (13:30)
[2022-07-05] MEDS: Fentanyl 100 MCG/2 ML VIAL SLOW IVP PRN (20:22)
[2022-07-05] MEDS: Multivit, Therapeutic 1 TAB PO SCH (20:25)
[2022-07-05] MEDS: Cyanocobalamin (Vitamin B-12) 1,000 MCG TAB PO SCH (20:25)
[2022-07-05] MEDS: Atorvastatin Calcium 40 MG TAB PO SCH (20:25)
[2022-07-06 04:38] LABS: #Eosinphils 0.2 thou/uL (0.0-0.7); #Lymphocytes 2.3 thou/uL (1.20-3.40); #Monocytes 0.9 thou/uL (0.11-0.59); #Neutrophils 7.4 thou/uL (1.40-6.50); %Basophils 0.2 % (0.0-1.0); %Lymphocytes 21.4 % (21.0-51.0); %Neutrophils 68.4 % (42.0-75.0); Hemoglobin 9.3 g/dL (12.0-16.0); Mean Corpuscular HGB CONC 32.3 g/dL (32.0-36.0); Mean Corpuscular Hemoglobin 30.1 pg (27.0-31.0); Mean Corpuscular Volume 93.1 fl (78.0-98.0); Mean Platelet Volume 9.2 fL (7.4-10.4); Platelet Count 370 10x3/uL (130-400); RBC Distribution Width 13.3 % (11.5-14.5); Red Blood Cell (RBC) Count 3.08 mill/uL (4.20-5.40); White Blood Cell (WBC) Count 10.8 10x3/uL (4.8-10.8)
[2022-07-06 04:53] LABS: Phosphorus 1.9 mg/dL (2.3-4.7)
[2022-07-06 04:54] LABS: Anion Gap 11 mmol/L (10-20); BUN (Urea Nitrogen) 5 mg/dL (7.0-18.7); Calc. Creatinine Clearance 260 mL/min (70-130); Calcium 8.4 mg/dL (7.8-10.44); Carbon Dioxide 21 mmol/L (22-29); Chloride 109 mmol/L (98-107); Estimated GFR 120; Glucose 105 mg/dL (70-105); Potassium 3.4 mmol/L (3.5-5.1); Sodium 138 mmol/L (136-145)
[2022-07-06] MEDS: VANCOMYCIN 1.75 GM/500 ML BAG 1.75 GM in Premix Bag 1 BAG IVPB SCH ×3 (04:59→23:24)
[2022-07-06] MEDS: Fentanyl 100 MCG/2 ML VIAL SLOW IVP PRN ×4 (05:04→20:44)
[2022-07-06] MEDS ORDERED: Potassium Chloride 20 MEQ TAB PO SCH (08:00)
[2022-07-06] MEDS: Metoprolol Tartrate 25 MG TAB PO SCH ×2 (09:40→20:48)
[2022-07-06] MEDS: cefTRIAXone\\ROCEPHIN 1 GM in Sodium Chloride 0.9% 100 ML IVPB SCH (09:41)
[2022-07-06] MEDS: Aspirin 325 mg Enteric Coated Tablet PO SCH (09:41)
[2022-07-06] MEDS: Furosemide 20 MG TAB PO SCH ×2 (09:41→14:02)
[2022-07-06] MEDS: Insulin Glargine 30 UNITS/0.3 ML VIAL SC SCH ×2 (09:41→20:48)
[2022-07-06] MEDS: Gabapentin 300 MG CAP PO SCH ×2 (09:42→14:02)
[2022-07-06] MEDS: Nilotinib Hcl [Tasigna] 150 MG Capsule PO SCH ×2 (09:42→20:54)
[2022-07-06] MEDS: PHOS-NAK 1 PKT PACK PO SCH ×2 (09:44→12:10)
[2022-07-06] MEDS: HumaLOG 300 UNITS/3 ML VIAL SC PRN (16:04)
[2022-07-06] MEDS ORDERED: HumaLOG 300 UNITS/3 ML VIAL SC PRN (20:25)
[2022-07-06] MEDS: Gabapentin 400 MG CAP PO SCH (20:46)
[2022-07-06] MEDS: traMADol HCl 50 MG TAB PO PRN (20:47)
[2022-07-06] MEDS: Cyanocobalamin (Vitamin B-12) 1,000 MCG TAB PO SCH (20:48)
[2022-07-06] MEDS: Atorvastatin Calcium 40 MG TAB PO SCH (20:48)
[2022-07-06] MEDS: Multivit, Therapeutic 1 TAB PO SCH (20:50)
[2022-07-06] MEDS ORDERED: PHOS-NAK 1 PKT PACK PO SCH (21:00)
[2022-07-07] MEDS: Fentanyl 100 MCG/2 ML VIAL SLOW IVP PRN ×3 (03:18→14:31)
[2022-07-07] MEDS: VANCOMYCIN 1.75 GM/500 ML BAG 1.75 GM in Premix Bag 1 BAG IVPB SCH ×3 (05:23→22:13)
[2022-07-07] MEDS: Gabapentin 400 MG CAP PO SCH ×3 (08:25→21:28)
[2022-07-07] MEDS: Aspirin 325 mg Enteric Coated Tablet PO SCH (08:25)
[2022-07-07] MEDS: Metoprolol Tartrate 25 MG TAB PO SCH ×2 (08:26→21:29)
[2022-07-07] MEDS: traMADol HCl 50 MG TAB PO PRN ×3 (08:26→21:37)
[2022-07-07] MEDS: Furosemide 20 MG TAB PO SCH ×2 (08:27→13:14)
[2022-07-07] MEDS: Insulin Glargine 30 UNITS/0.3 ML VIAL SC SCH ×2 (08:27→21:29)
[2022-07-07] MEDS: cefTRIAXone\\ROCEPHIN 1 GM in Sodium Chloride 0.9% 100 ML IVPB SCH (08:28)
[2022-07-07] MEDS: Nilotinib Hcl [Tasigna] 150 MG Capsule PO SCH ×2 (08:29→21:40)
[2022-07-07 12:48] LABS: #Eosinphils 0.2 thou/uL (0.0-0.7); #Lymphocytes 2.4 thou/uL (1.20-3.40); #Monocytes 0.9 thou/uL (0.11-0.59); #Neutrophils 7.5 thou/uL (1.40-6.50); %Basophils 0.3 % (0.0-1.0); %Eosinophils 1.5 % (0.0-10.0); %Lymphocytes 21.6 % (21.0-51.0); %Monocytes 8.3 % (0.0-10.0); %Neutrophils 68.2 % (42.0-75.0); Hemoglobin 9.6 g/dL (12.0-16.0); Mean Corpuscular HGB CONC 31.8 g/dL (32.0-36.0); Mean Corpuscular Hemoglobin 29.6 pg (27.0-31.0); Mean Corpuscular Volume 92.9 fl (78.0-98.0); Mean Platelet Volume 9.3 fL (7.4-10.4); Platelet Count 406 10x3/uL (130-400); RBC Distribution Width 13.5 % (11.5-14.5); Red Blood Cell (RBC) Count 3.26 mill/uL (4.20-5.40)
[2022-07-07 12:58] LABS: Anion Gap 12 mmol/L (10-20); BUN (Urea Nitrogen) 5 mg/dL (7.0-18.7); Calc. Creatinine Clearance 171 mL/min (70-130); Calcium 8.3 mg/dL (7.8-10.44); Carbon Dioxide 23 mmol/L (22-29); Chloride 105 mmol/L (98-107); Estimated GFR 104; Glucose 307 mg/dL (70-105); Potassium 3.8 mmol/L (3.5-5.1); Sodium 136 mmol/L (136-145)
[2022-07-07] MEDS: PHOS-NAK 1 PKT PACK PO SCH ×2 (14:36→21:28)
[2022-07-07] MEDS: HumaLOG 300 UNITS/3 ML VIAL SC PRN (17:29)
[2022-07-07] MEDS ORDERED: Insulin Glargine 30 UNITS/0.3 ML VIAL SC SCH (21:00)
[2022-07-07] MEDS: Atorvastatin Calcium 40 MG TAB PO SCH (21:28)
[2022-07-07] MEDS: Multivit, Therapeutic 1 TAB PO SCH (21:28)
[2022-07-07] MEDS: Cyanocobalamin (Vitamin B-12) 1,000 MCG TAB PO SCH (21:29)
[2022-07-08 05:10] LABS: #Eosinphils 0.3 thou/uL (0.0-0.7); #Lymphocytes 2.3 thou/uL (1.20-3.40); #Monocytes 0.9 thou/uL (0.11-0.59); #Neutrophils 6.4 thou/uL (1.40-6.50); %Basophils 0.4 % (0.0-1.0); %Eosinophils 2.7 % (0.0-10.0); %Lymphocytes 23.4 % (21.0-51.0); %Monocytes 8.7 % (0.0-10.0); %Neutrophils 64.9 % (42.0-75.0); Hemoglobin 9.3 g/dL (12.0-16.0); Mean Corpuscular HGB CONC 32.3 g/dL (32.0-36.0); Mean Corpuscular Hemoglobin 29.8 pg (27.0-31.0); Mean Corpuscular Volume 92.1 fl (78.0-98.0); Platelet Count 420 10x3/uL (130-400); RBC Distribution Width 13.5 % (11.5-14.5); Red Blood Cell (RBC) Count 3.14 mill/uL (4.20-5.40); White Blood Cell (WBC) Count 9.9 10x3/uL (4.8-10.8)
[2022-07-08 05:25] LABS: Phosphorus 2.1 mg/dL (2.3-4.7)
[2022-07-08 05:25] LABS: Vancomycin, Trough 24.3 ug/mL
[2022-07-08 05:26] LABS: Anion Gap 10 mmol/L (10-20); BUN (Urea Nitrogen) 5 mg/dL (7.0-18.7); Calc. Creatinine Clearance 244 mL/min (70-130); Calcium 8.5 mg/dL (7.8-10.44); Carbon Dioxide 25 mmol/L (22-29); Chloride 105 mmol/L (98-107); Estimated GFR 118; Glucose 118 mg/dL (70-105); Potassium 3.5 mmol/L (3.5-5.1); Sodium 136 mmol/L (136-145)
[2022-07-08] MEDS: VANCOMYCIN 1.75 GM/500 ML BAG 1.75 GM in Premix Bag 1 BAG IVPB SCH (06:00)
[2022-07-08] MEDS ORDERED: Potassium Chloride 20 MEQ TAB PO SCH (08:00)
[2022-07-08] MEDS: Fentanyl 100 MCG/2 ML VIAL SLOW IVP PRN ×2 (08:41→18:33)
[2022-07-08] MEDS: traMADol HCl 50 MG TAB PO PRN ×2 (08:44→20:34)
[2022-07-08] MEDS: cefTRIAXone\\ROCEPHIN 1 GM in Sodium Chloride 0.9% 100 ML IVPB SCH (08:44)
[2022-07-08] MEDS: Gabapentin 400 MG CAP PO SCH ×3 (08:45→20:34)
[2022-07-08] MEDS: Metoprolol Tartrate 25 MG TAB PO SCH ×2 (08:45→20:33)
[2022-07-08] MEDS: Aspirin 325 mg Enteric Coated Tablet PO SCH (08:45)
[2022-07-08] MEDS: Furosemide 20 MG TAB PO SCH ×2 (08:45→14:05)
[2022-07-08] MEDS: Insulin Glargine 30 UNITS/0.3 ML VIAL SC SCH ×2 (08:46→20:33)
[2022-07-08] MEDS: Nilotinib Hcl [Tasigna] 150 MG Capsule PO SCH ×2 (08:47→20:35)
[2022-07-08] MEDS: VANCOMYCIN 1.25 GM/250 ML BAG 1.25 GM in Premix Bag 1 BAG IVPB SCH ×2 (14:05→21:33)
[2022-07-08] MEDS: Cyanocobalamin (Vitamin B-12) 1,000 MCG TAB PO SCH (20:33)
[2022-07-08] MEDS: Atorvastatin Calcium 40 MG TAB PO SCH (20:33)
[2022-07-08] MEDS: Multivit, Therapeutic 1 TAB PO SCH (20:34)
[2022-07-09] MEDS: Fentanyl 100 MCG/2 ML VIAL SLOW IVP PRN ×3 (01:54→20:17)
[2022-07-09] MEDS: VANCOMYCIN 1.25 GM/250 ML BAG 1.25 GM in Premix Bag 1 BAG IVPB SCH (05:44)
[2022-07-09] MEDS: HumaLOG 300 UNITS/3 ML VIAL SC PRN ×2 (05:46→17:20)
[2022-07-09 08:14] LABS: #Eosinphils 0.4 thou/uL (0.0-0.7); #Lymphocytes 2.4 thou/uL (1.20-3.40); #Monocytes 0.8 thou/uL (0.11-0.59); #Neutrophils 7.3 thou/uL (1.40-6.50); %Basophils 0.2 % (0.0-1.0); %Eosinophils 3.4 % (0.0-10.0); %Lymphocytes 21.9 % (21.0-51.0); %Monocytes 7.5 % (0.0-10.0); Hemoglobin 10.1 g/dL (12.0-16.0); Mean Corpuscular HGB CONC 32.1 g/dL (32.0-36.0); Mean Corpuscular Hemoglobin 29.6 pg (27.0-31.0); Mean Corpuscular Volume 92.2 fl (78.0-98.0); Mean Platelet Volume 9.3 fL (7.4-10.4); Platelet Count 442 10x3/uL (130-400); RBC Distribution Width 13.6 % (11.5-14.5); White Blood Cell (WBC) Count 10.9 10x3/uL (4.8-10.8)
[2022-07-09 08:28] LABS: Anion Gap 12 mmol/L (10-20); BUN (Urea Nitrogen) 7 mg/dL (7.0-18.7); Calc. Creatinine Clearance 223 mL/min (70-130); Calcium 9.2 mg/dL (7.8-10.44); Carbon Dioxide 24 mmol/L (22-29); Chloride 105 mmol/L (98-107); Estimated GFR 115; Glucose 160 mg/dL (70-105); Potassium 4.7 mmol/L (3.5-5.1); Sodium 136 mmol/L (136-145)
[2022-07-09] MEDS: cefTRIAXone\\ROCEPHIN 1 GM in Sodium Chloride 0.9% 100 ML IVPB SCH (08:35)
[2022-07-09] MEDS: traMADol HCl 50 MG TAB PO PRN ×3 (08:35→20:14)
[2022-07-09] MEDS: Insulin Glargine 30 UNITS/0.3 ML VIAL SC SCH ×2 (08:36→20:20)
[2022-07-09] MEDS: Metoprolol Tartrate 25 MG TAB PO SCH ×2 (08:36→20:11)
[2022-07-09] MEDS: Aspirin 325 mg Enteric Coated Tablet PO SCH (08:36)
[2022-07-09] MEDS: Gabapentin 400 MG CAP PO SCH ×3 (08:36→20:11)
[2022-07-09] MEDS: Furosemide 20 MG TAB PO SCH ×2 (08:37→13:32)
[2022-07-09] MEDS: Nilotinib Hcl [Tasigna] 150 MG Capsule PO SCH ×2 (08:37→20:25)
[2022-07-09 09:57] LABS: Vancomycin, Trough 25.2 ug/mL
[2022-07-09] MEDS: Multivit, Therapeutic 1 TAB PO SCH (20:11)
[2022-07-09] MEDS: Cyanocobalamin (Vitamin B-12) 1,000 MCG TAB PO SCH (20:11)
[2022-07-09] MEDS: Atorvastatin Calcium 40 MG TAB PO SCH (20:11)
[2022-07-10] MEDS: traMADol HCl 50 MG TAB PO PRN ×4 (00:09→13:16)
[2022-07-10] MEDS: HumaLOG 300 UNITS/3 ML VIAL SC PRN ×2 (06:24→17:15)
[2022-07-10] MEDS: Insulin Glargine 30 UNITS/0.3 ML VIAL SC SCH ×2 (09:16→21:12)
[2022-07-10] MEDS: Aspirin 325 mg Enteric Coated Tablet PO SCH (09:16)
[2022-07-10] MEDS: Nilotinib Hcl [Tasigna] 150 MG Capsule PO SCH ×2 (09:16→21:16)
[2022-07-10] MEDS: Metoprolol Tartrate 25 MG TAB PO SCH (09:16)
[2022-07-10] MEDS: Gabapentin 400 MG CAP PO SCH ×3 (10:16→21:10)
[2022-07-10] MEDS: Furosemide 20 MG TAB PO SCH ×2 (10:16→13:03)
[2022-07-10] MEDS: HYDROcodone/Acetaminophen 5/325 mg Tablet PO PRN ×2 (17:15→21:10)
[2022-07-10] MEDS: Multivit, Therapeutic 1 TAB PO SCH (21:10)
[2022-07-10] MEDS: Atorvastatin Calcium 40 MG TAB PO SCH (21:10)
[2022-07-10] MEDS: Cyanocobalamin (Vitamin B-12) 1,000 MCG TAB PO SCH (21:10)
[2022-07-11] MEDS: HYDROcodone/Acetaminophen 5/325 mg Tablet PO PRN ×4 (04:23→20:28)
[2022-07-11] MEDS: HumaLOG 300 UNITS/3 ML VIAL SC PRN (05:55)
[2022-07-11 07:48] LABS: #Eosinphils 0.2 thou/uL (0.0-0.7); #Lymphocytes 2.5 thou/uL (1.20-3.40); #Monocytes 0.8 thou/uL (0.11-0.59); #Neutrophils 8.3 thou/uL (1.40-6.50); %Basophils 0.1 % (0.0-1.0); %Eosinophils 1.7 % (0.0-10.0); %Lymphocytes 21.2 % (21.0-51.0); %Monocytes 6.5 % (0.0-10.0); %Neutrophils 70.6 % (42.0-75.0); Hemoglobin 10.3 g/dL (12.0-16.0); Mean Corpuscular HGB CONC 31.1 g/dL (32.0-36.0); Mean Corpuscular Hemoglobin 28.6 pg (27.0-31.0); Mean Corpuscular Volume 91.8 fl (78.0-98.0); Mean Platelet Volume 9.3 fL (7.4-10.4); Platelet Count 476 10x3/uL (130-400); RBC Distribution Width 13.8 % (11.5-14.5); Red Blood Cell (RBC) Count 3.61 mill/uL (4.20-5.40); White Blood Cell (WBC) Count 11.8 10x3/uL (4.8-10.8)
[2022-07-11 08:01] LABS: Anion Gap 13 mmol/L (10-20); BUN (Urea Nitrogen) 8 mg/dL (7.0-18.7); Calc. Creatinine Clearance 205 mL/min (70-130); Calcium 9.3 mg/dL (7.8-10.44); Carbon Dioxide 22 mmol/L (22-29); Chloride 101 mmol/L (98-107); Estimated GFR 114; Glucose 186 mg/dL (70-105); Potassium 3.9 mmol/L (3.5-5.1); Sodium 132 mmol/L (136-145)
[2022-07-11] MEDS: Gabapentin 400 MG CAP PO SCH ×3 (08:01→20:29)
[2022-07-11] MEDS: Aspirin 325 mg Enteric Coated Tablet PO SCH (08:01)
[2022-07-11] MEDS: Insulin Glargine 30 UNITS/0.3 ML VIAL SC SCH ×2 (08:02→20:46)
[2022-07-11] MEDS: Nilotinib Hcl [Tasigna] 150 MG Capsule PO SCH ×2 (08:02→20:49)
[2022-07-11] MEDS: Atorvastatin Calcium 40 MG TAB PO SCH (20:28)
[2022-07-11] MEDS: Cyanocobalamin (Vitamin B-12) 1,000 MCG TAB PO SCH (20:28)
[2022-07-11] MEDS: Multivit, Therapeutic 1 TAB PO SCH (20:28)
[2022-07-11] MEDS: Ondansetron PF 4 MG/2 ML Vial IVP PRN (20:48)
[2022-07-11] MEDS ORDERED: Midodrine HCl 5 MG TAB PO SCH (21:00)
[2022-07-12] MEDS: HYDROcodone/Acetaminophen 5/325 mg Tablet PO PRN ×7 (00:31→23:55)
[2022-07-12] MEDS: HumaLOG 300 UNITS/3 ML VIAL SC PRN ×2 (06:04→16:28)
[2022-07-12] MEDS: Aspirin 325 mg Enteric Coated Tablet PO SCH (09:30)
[2022-07-12] MEDS: Gabapentin 400 MG CAP PO SCH ×3 (09:31→20:09)
[2022-07-12] MEDS: Midodrine HCl 5 MG TAB PO SCH ×3 (09:31→20:08)
[2022-07-12] MEDS: Insulin Glargine 30 UNITS/0.3 ML VIAL SC SCH ×2 (09:32→20:14)
[2022-07-12 10:44] LABS: Cardiac Risk 3.7 (Less than 4.5)
[2022-07-12] MEDS ORDERED: Iopamidol-370 76% 500 ML 1 ML ONE (15:30)
[2022-07-12 16:51] LABS: Complement-C4 54.7 mg/dL (15-57)
[2022-07-12 17:11] LABS: HBCM Index 0.07 S/CO (0-0.79); HBSAg Index 0.38 S/CO (0-0.99); HIV (1/2) Antibody/Antigen Non-Reactive (NonReactive); HIV 1/2 INDEX 0.17 S/CO (<1.00); Hep A IgM AB Non-Reactive (NonReactive); Hep A IgM S/CO 0.14 S/CO (0-0.79); Hep B Surf Ag Non-Reactive S/CO (NonReactive); Hep C IgG Ab Non-Reactive (NonReactive); Hepatitis B Core IgM Abs Non-Reactive (NonReactive)
[2022-07-12 17:11] LABS: PTT 31.2 sec (22.9-36.1); Prothrombin Time 13.4 sec (12.0-14.7)
[2022-07-12 17:12] LABS: D-Dimer Test 0.52 *mcg/mL (0.27-0.43)
[2022-07-12 18:39] LABS: Syphilis Antibody Nonreactive (Nonreactive); Syphilis Antibody Index 0.05 S/CO (<1.00 Non-Reactive)
[2022-07-12] MEDS: Cyanocobalamin (Vitamin B-12) 1,000 MCG TAB PO SCH (20:09)
[2022-07-12] MEDS: Atorvastatin Calcium 40 MG TAB PO SCH (20:09)
[2022-07-12] MEDS: Multivit, Therapeutic 1 TAB PO SCH (20:09)
[2022-07-12] MEDS: Senokot S 8.6-50 MG TAB PO SCH (20:09)
[2022-07-12] MEDS: Morphine 4 MG/ML VIAL SLOW IVP PRN (20:10)
[2022-07-13] MEDS: Morphine 4 MG/ML VIAL SLOW IVP PRN ×2 (02:13→09:19)
[2022-07-13] MEDS: HYDROcodone/Acetaminophen 5/325 mg Tablet PO PRN ×3 (04:15→15:59)
[2022-07-13] MEDS: HumaLOG 300 UNITS/3 ML VIAL SC PRN ×2 (05:49→16:02)
[2022-07-13] MEDS ORDERED: Polyethylene Glycol 3350 17 GM Packet PO SCH (09:00)
[2022-07-13 09:01] VITALS: TEMP 97.7
[2022-07-13] MEDS: Aspirin 325 mg Enteric Coated Tablet PO SCH (09:12)
[2022-07-13] MEDS: Midodrine HCl 5 MG TAB PO SCH ×2 (09:12→12:49)
[2022-07-13] MEDS: Gabapentin 400 MG CAP PO SCH ×2 (09:13→12:48)
[2022-07-13] MEDS: Insulin Glargine 30 UNITS/0.3 ML VIAL SC SCH (09:16)
[2022-07-13] MEDS: Senokot S 8.6-50 MG TAB PO SCH (09:17)
[2022-07-13] MEDS ORDERED: Lidocaine 1% (PF) 30 ML VIAL ONE (13:16)
[2022-07-15 17:31] LABS: ANA Symphony (Qualitative) Negative (Negative); ANA Symphony (Quantitative) 0.5 Ratio (< 0.7 Negative); CCP IgG Antibody 1.5 EliAU/mL (<7 Negative); Rheumatoid Factor IgA Antibody 6.3 IU/mL (<14 Negative); Rheumatoid Factor IgM Antibody Less than 0.6 IU/mL (<3.5 Negative)
[2022-07-15 19:04] LABS: Cardiolipin IgA Ab 5.5 APL-U/mL (<14 Negative); Cardiolipin IgG Ab 1.4 GPL-U/mL (<10 Negative); Cardiolipin IgM Ab 1.9 MPL-U/mL (<10 Negative); EliA APS New Method **** NEW METHOD ****
[2022-07-17 07:15] LABS: IgG Subclass 1 667 mg/dL (248-810); IgG Subclass 2 803 mg/dL (130-555); IgG Subclass 3 82 mg/dL (15-102); Immunoglobulin - G (Sendout) 1596 mg/dL (586-1602)
[2022-07-17 10:23] LABS: HEX PHOS LA Tube 2 34.5 SEC; Hexagonal Phospholipid Neut 3.5 SEC (0-8.0); Protein C Activity 134 % (78-152)
== END 2022-07-13 16:45 | disposition home or self-care (01) | DRG 853 ==
LOC: ERS 10:17 → ERHOLD 13:14 → T4-B 16:47 → CCU 19:38 → T4-B 19:59 → IMCU/EMU 20:02
PROVIDERS: ADMIT Internal Medicine; ATTEND Internal Medicine
PROC: 3E033XZ Introduction of Vasopressor into Peripheral Vein, Percutaneous Approach (ICD-10-PCS; 2022-06-28)
PROC: 3E03329 Introduction of Other Anti-infective into Peripheral Vein, Percutaneous Approach (ICD-10-PCS; 2022-06-28)
PROC: B41F1ZZ Fluoroscopy of Right Lower Extremity Arteries using Low Osmolar Contrast (ICD-10-PCS; principal; 2022-06-30)
PROC: 03BS0ZX Excision of Right Temporal Artery, Open Approach, Diagnostic (ICD-10-PCS; 2022-07-13)
DX: A41.9 Sepsis, unspecified organism (principal); I21.A1 Myocardial infarction type 2; C95.90 Leukemia, unspecified not having achieved remission; L03.115 Cellulitis of right lower limb; E87.1 Hypo-osmolality and hyponatremia; E11.52 Type 2 diabetes mellitus with diabetic peripheral angiopathy with gangrene; C92.10 Chronic myeloid leukemia, BCR/ABL-positive, not having achieved remission; R65.20 Severe sepsis without septic shock; E78.5 Hyperlipidemia, unspecified; I10 Essential (primary) hypertension; E11.40 Type 2 diabetes mellitus with diabetic neuropathy, unspecified; I25.10 Atherosclerotic heart disease of native coronary artery without angina pectoris; E87.6 Hypokalemia; E83.39 Other disorders of phosphorus metabolism; E83.42 Hypomagnesemia; I95.9 Hypotension, unspecified; Z20.822 Contact with and (suspected) exposure to COVID-19; Z79.82 Long term (current) use of aspirin; Z79.899 Other long term (current) drug therapy; Z79.4 Long term (current) use of insulin; Z79.84 Long term (current) use of oral hypoglycemic drugs; Z98.890 Other specified postprocedural states; Z95.1 Presence of aortocoronary bypass graft; Z89.421 Acquired absence of other right toe(s)
CPT/HCPCS: 36005; 36140; 36415; 36416; 71275; 74174; 75635; 75710; 75820; 76999; 80048; 80053; 80061; 80074; 80202; 82040; 82533; 82595; 82787; 83090; 83516; 83520; 83605; 83735; 83970; 84100; 84484; 84703; 85025; 85240; 85300; 85303; 85305; 85307; 85379; 85598; 85610; 85652; 85730; 86037; 86038; 86140; 86147; 86160; 86162; 86200; 86225; 86780; 87040; 87081; 87389; 87811; 93005; 93010; 93306; 93970; 96365; 96375; 97139; C1769; J0692; J0696; J1644; J1650; J1815; J1885; J2001; J2270; J2405; J3010; J3370; J3475; J3490; J7120; Q9967; U0003; U0005